=== PATIENT | female | born 1955 | race Caucasian/White ===

== ENCOUNTER 2020-08-23 04:39 | Observation (INO) | payer SELFPAY ==
[2020-08-23] VITALS (22 sets, daily range): BP systolic 110–167; BP diastolic 41–112; PULSE 97–143; RESP 14–30; TEMP 36.3–36.5; O2SAT 93–99; BMI 29.3
--- NOTE | ~2020-08-23 | CT_ITS ---
EXAMINATION: CT brain wo con INDICATION: Headache COMPARISON: None TECHNIQUE: Standard unenhanced head CT. The dose-length product (DLP) was 605.33 mGy-cm. The mA was a djusted according to patient size. Iterative reconstruction technique was employed. FINDINGS: There is no acute intraparenchymal hemorrhage. No evidence of mass lesion. No evidence of a cute infarction. Surgical changes are noted in the left occipital bone with subtle adjacent encephalo malacia in the left cerebellum. There is mild periventricular and subcortical hypodensity probably re lated to small vessel ischemic disease. There is mild prominence of the sulci and ventricles related to cerebral atrophy. Intracranial calcified cerebral atherosclerosis is noted. There are no extra-axi al collections. There is no mass effect or midline shift. The orbits and soft tissues are unremarkabl e. The visualized sinuses and mastoid air cells are well aerated. IMPRESSION: 1. No acute intracranial abnormality. 2. Age related findings. Reviewed, dictated and finalized at location A. RESSED GAS EQUIPMENT MECHANIC
--- NOTE | ~2020-08-23 | XR_ITS ---
EXAMINATION: XR barium swallow modified EXAM DATE: 08/24/2020 11:52 INDICATION: Dysphagia. TECHNIQUE: Modified barium esophagram was performed by myself to administered fluoroscopy, in conjun ction with speech pathologist who administered barium in varying consistencies as per speech patholog ist documentation. This was recorded on tape. The DAP for this procedure was 0.8 Gycm2. FINDINGS: Oral stage: Adequate function. Pharyngeal phase: Adequate function. Laryngeal penetration: None. Aspiration: None. Laryngeal sensitivity: Present. IMPRESSION: Patient tolerated oral feedings in the upright position. Please refer to speech patholo gist findings and specific feeding recommendations. Reviewed, dictated and finalized at location A. FIC LINE PAINTER IMPRESSION: Patient tolerated oral feedings in the upright position. Please r efer to speech pathologist findings and specific feeding recommendations.
--- NOTE | ~2020-08-23 | XR_ITS ---
EXAMINATION: XR chest 1V portable INDICATION: Headache TECHNIQUE: Portable AP chest at 0600 hours COMPARISON: None available FINDINGS: There are patchy opacities of the lung bases. No pleural effusion or pneumothorax is identi fied. The cardiomediastinal silhouette is normal. IMPRESSION: 1. Patchy bibasilar airspace opacities, consistent with atelectasis versus pneumonia. Reviewed, dictated and finalized at location A. DER HAND IMPRESSION: 1. Patchy bibasilar airspace opacities, consistent with atelectasis versus pneu monia.
--- NOTE | 2020-08-23 04:48 | ECG_ITS ---
Measurements Intervals [place] Rate: 134 P: 51 MT: 151 QRS: 4 QRSD: 76 T: 50 QT: 295 QTc: 442 Interpretive Statements SINUS TACHYCARDIA LEFT VENTRICULAR HYPERTROPHY AND ST-T CHANGE BORDERLINE ST ABNORMALITY- ANTEROLATERAL LEADS BASELINE ARTIFACT- II, III, AVF, V4-V6 ABNORMAL ECG Electronically Signed On 08-23-2020 9:04:48 DINKEY ENGINE FIRER/FIREMAN by Natalio Rose D.O.
--- NOTE | 2020-08-23 04:51 | ED.NEUROSD ---
HPI - Neuro Symptoms/Deficit General Chief Complaint: Suspected CVA Stated Complaint: headache Time Seen by Provider: 08/23/20 04:43 Source: EMS Mode of arrival: EMS Limitations: physical limitation History of Present Illness HPI Narrative: This patient is a 64 year old female with history of anxiety and CVA who presents via EMS for evaluation of sudden onset headache. Patient's is at bedside providing history. She states 1 month ago patient developed sudden onset headache with nausea, vomiting , and slurred speech and extremity weakness. She was admitted to [facility] for almost 2 weeks. She reported had multiple CT scan, lumbar puncture and a brain biopsy. Her states patient was discharged 08/07/20 from [place]. At the time of discharge, she still had slurred speech and bilateral extremity weakness. She reports patient has been having daily headaches since discharge. Last night she states patient started clinching both her hands and she starting having severe head pain. PAtient reports she developed worsening pain at 3 am. She takes tylenol for her headache. Related Data Home Medications Medication Instructions Recorded Confirmed hydrocodone-acetaminophen 1 tablet PO Q4H PRN 08/23/20 08/23/20 lisinopril 20 mg PO DAILY 08/23/20 08/23/20 omeprazole 40 mg PO DAILY 08/23/20 08/23/20 paroxetine HCl 40 mg PO QAM 08/23/20 08/23/20 Allergies Allergy/AdvReac Type Severity Reaction Status Date / Time No Known Allergies Allergy Verified 08/23/20 10:49 Review of Systems Review of Systems: Narrative: CONSTITUTIONAL: Denies fever, chills, or sweats. EYES: redness, or discharge.report blurred vision for weaks ENT: Denies rhinorrhea, congestion, sore throat, or otalgia. CARDIOVASCULAR: Denies chest pain, palpitations, or edema. RESPIRATORY: Denies cough or dyspnea. GASTROINTESTINAL: Denies abdominal pain or diarrhea. reports nausea and vomiting GENITOURINARY: Denies dysuria or hematuria. SKIN: Denies rash or itching. MUSCULOSKELETAL: Denies back pain, joint pain, or myalgia. PSYCHIATRIC: Denies anxiety or depression. [facility] Past Medical History Medical History (Updated 08/23/20 @ 13:59 by Leticia Kapadia PA-C) Anxiety Depression Gastroesophageal reflux disease Headache Hospitalized at [facility] for nearly 2 weeks in July 2020 with severe headache. Eventual brain biopsy demonstrated cerebellar inflammation, treated with high-dose steroids. Hyperlipidemia Hypertension Surgical History Surgical History (Updated 08/23/20 @ 13:57 by Leticia Kapadia PA-C) History of craniotomy (~07/2020) Left craniotomy with cerebellar biopsy showing inflammation, treated with high-dose steroids. History of hysterectomy Family History Family History (Updated 08/24/20 @ 00:09 by Leticia Kapadia PA-C) Other Hypertension Social History Social History (Updated 08/24/20 @ 00:09 by Leticia Kapadia PA-C) Social History: Surrogate decision maker: Sindi Cisneros, . Code status: Full code. Smoking status: Never smoker Alcohol intake: former Substance use: never Additional living arrangements comments: Lives in [place] with her . She has no children. They have 4 dogs. Additional occupation/education comments: Retired from [employer]. Gender identity (if verbalized by the patient): Female Sexual Orientation (if Verbalized by the Patient): Lesbian, Oliveira, or Homosexual Spiritual care concerns: No Exam Const: General: alert and acute distress severe (due to pain) Nutritional Appearance: well nourished Orientation/consciousness: patient oriented x3 HENMT: Head: normocephalic and atraumatic Ears: TM's normal bilaterally Face and sinus: face symmetric Mouth: Yes moist mucous membranes Eyes: Pupils: Equal, round and reactive pupils present EOM: EOMs intact bilaterally Chest: Chest palpation & inspection: normal inspection of the chest
[2020-08-23] MEDS: METOCLOPRAMIDE HCL INJ 10 MG/2 ML VIAL IV PUSH (05:05)
[2020-08-23] MEDS: diphenhydrAMINE HCl INJ 50 MG/ML VIAL 25 MG IV PUSH (05:05)
[2020-08-23] MEDS: LORazepam INJ (*CRX) 2 MG/ML VIAL 1 MG IV PUSH (05:05)
[2020-08-23 05:08] LABS: Basophils Percent Auto 0.2 % (0.2-1.2); Eosinophils Absolute Auto 0.1 K/mm3 (0-0.3); Hematocrit 37.8 % (37.0-47.0); Hemoglobin 13.2 g/dL (12.0-15.0); Immature Granulocyte Absolute 0.03 K/mm3 (0.00-0.031); Immature Granulocyte Percent A 0.2 % (0-0.5); Lymphocytes Absolute Auto 3.09 K/mm3 (0.9-3.2); Lymphocytes Percent Auto 24.9 % (18.3-44.2); Mean Corpuscular HGB Conc 34.9 g/dl (32-36); Mean Corpuscular Hemoglobin 31.1 pg (26-34); Mean Corpuscular Volume 89.2 fl (80-100); Mean Platelet Volume 10.4 fl (7.4-10.4); Monocytes Absolute Auto 0.7 K/mm3 (0.1-0.6); Monocytes Percent Auto 5.6 % (2.6-8.5); Neutrophils Absolute Auto 8.4 K/mm3 (1.3-6.7); Neutrophils Percent Auto 68.1 % (45.5-73.1); Platelet Count Result 363 k/mm3 (150-375); Red Blood Count 4.24 M/mm3 (4.2-5.4); Red Cell Distribution Width 13.6 % (11.5-14.5); White Blood Count 12.4 K/mm3 (4.5-10.0)
[2020-08-23] MEDS: LACTATED RINGERS 1,000 ML 999 ML IV CONT (05:09)
[2020-08-23 05:19] LABS: Prothrombin Time 13.7 Seconds (11.1-14.7)
[2020-08-23 05:20] LABS: Partial Thromboplastin Time 24.2 SECONDS (22.3-36.8)
[2020-08-23 05:51] LABS: Alanine Aminotransferase 36 U/L (4-35); Albumin Level 4.6 g/dL (3.5-5.1); Alkaline Phosphatase 58 U/L (38-126); Anion Gap 22 mmol/L (8-16); Aspartate Amino Transferase 36 U/L (14-36); Bilirubin,Total 1.2 mg/dL (0.2-1.3); Blood Urea Nitrogen 11 mg/dL (7-17); Calcium 7.2 mg/dL (8.4-10.2); Carbon Dioxide 20 mmol/L (22-30); Chloride 102 mmol/L (98-107); Estimated CRCL calculation 63 ml/min; Estimated Glomerular Filt Rate > 60; Glucose 200 mg/dL (65-105); Potassium 2.5 mmol/L (3.4-5.0); Sodium 144 mmol/L (137-145)
[2020-08-23 07:00] LABS: Alveolar/Arterial O2 Gradient 45.6 mmHg; Base Excess ABG 1.5 mEq/l (+/-2.0); Carboxyhemoglobin 0.7 % THb (0-2.0); Fractional Inspired Oxygen 21 %; HCO3 ABG 24.5 mEq/l (22.0-26.0); Methemoglobin ABG 0.3 %THb (0-1.5); Oxygen Content ABG 17.1 %vol (16.0-22.0); Oxyhemoglobin 91.2 % THb (90.0-100.0); PCO2 ABG 33.5 mmHg (35.0-45.0); PO2 FiO2 Ratio Arterial Blood 3.05 %; Reduced Hemoglobin 7.8 %THb (0-5.0); Total Hemoglobin 13.3 g/dL (12.0-18.0); pH ABG 7.482 (7.350-7.450)
[2020-08-23 07:01] LABS: Device ROOM AIR; Modified Allen's Test Pass; Site Drawn RIGHT RADIAL
[2020-08-23 07:23] LABS: Magnesium 0.3 mg/dL (1.6-2.3)
[2020-08-23] MEDS: ONDANSETRON INJ 4 MG/2 ML VIAL IV PUSH (08:07)
[2020-08-23] MEDS: MAGNESIUM SULFATE 3GM/D5W100ML 3 GM/100 ML BAG IVPB (08:07)
[2020-08-23] MEDS: SODIUM CHLORIDE 0.9% IV 1,000 ML 999 ML IV CONT (08:07)
[2020-08-23 08:57] LABS: Ethanol < 10 mg/dL (<10)
[2020-08-23 09:01] LABS: Add Urine Microscopic? YES; Appearance Urine Clear (Clear); Bilirubin Urine Negative (Negative); Blood Urine Negative (Negative); Color Urine Yellow (Yellow); Glucose Urine UA Negative (Negative); Ketones Urine 1+ mg/dL (Negative); Leukocyte Esterase Ur Negative LEU/UL (Negative); Mucus Urine Rare /lpf; Nitrate Urine Negative (Negative); Protein Urine 2+ mg/dL (Negative); RBC Urine 0-2 /hpf (0-2); Specific Grav Ur 1.027 (1.001-1.035); Squamous Epithelial Cell Urine Rare /hpf (Few); Urobilinogen Urine Negative mg/dL (<2.0); WBC Urine 0-3 /hpf
[2020-08-23 09:03] LABS: Amphetamine Screen Urine Negative (Negative); Barbiturate Screen Urine Negative (Negative); Benzodiazepines Screen Urine Negative (Negative); Cannabinoid Screen Urine Negative (Negative); Cocaine Screen Urine Negative (Negative); Methadone Screen Urine Negative (Negative); Opiate Screen Urine Positive (Negative); Phencyclidine Screen Urine Negative (Negative)
[2020-08-23] MEDS: Please add drug allergy info to patient profile. 1 EACH XX (09:22)
[2020-08-23] MEDS: LACTATED RINGERS 1,000 ML 50 ML IV CONT (10:15)
--- NOTE | 2020-08-23 10:15 | PC.NURSE ---
report obtained from Sara HONG, reviewed plan of care and condition
--- NOTE | 2020-08-23 10:16 | ADMGEN ---
This patient, Geno De Jesus, was admitted to Medical Room 344-01. Patient/family oriented to hospital policies and general routines including ID bracelet, bed and alarms, visiting hours, pain management, procedures, bathroom and other care routines, personal items, smoking policy, room service/diet, and visiting hours. Placed on telemetry per MD orders, reviewed plan of care with pt Information on how to activate the Rapid Response Team has been discussed. Patient/Family are encouraged to report perceived risks to care and to ask questions if they do not understand what they are told or what they should do.
--- NOTE | 2020-08-23 10:17 | PCDIET ---
IVFs slowed due to potassium infusion
--- NOTE | 2020-08-23 10:59 | WPDNEURCNPN ---
Assessment and Plan Assessment and plan (1) Acute headache: Code(s): R51.9 - Headache, unspecified Status: Acute (2) Acute hypokalemia: Code(s): E87.6 - Hypokalemia Status: Acute (3) Hypomagnesemia: Code(s): E83.42 - Hypomagnesemia Status: Acute Additional Plan severe subacute headaches with the history of the cerebellar biopsy and treatment with steroids I will discuss with her obtain the EEG and we might give her the short course of steroids if she remains afebrile and we feel no need for the spinal tap Consult date: 08/23/20 Time Seen: 10:59 HPI: Geno De Jesus is a 64 year old female admitted to the hospital for the complaints of sudden onset of headache and as for the information available from the patient had developed sudden headache about a month ago with nausea vomiting and slurred speech and generalized weakness she was admitted to [facility] for [address] scans lumbar puncture brain biopsy was done and she was discharged on August 07, 2020 with slurred speech bilateral lower extremity weakness but she has been complaining of severe headache since the last night. As per the information available from the [place] neuro she had undergone extensive evaluation for the complaints of the headache to the point that she had a brain biopsy of the cerebellum and she was discharged on high dosage of steroids. her electrolytes are abnormal with potassium 2.5 blood sugar of 200 and WBCs 12.4 with hemoglobin 13.2 and platelets [address] of the head done here revealed no mass effect or midline shift postsurgical changes at the left skull base and hypodensity in the left cerebellum with the biopsy must have been taken. at present patient is not receiving steroids Review of Systems Review of Systems: All systems reviewed & are unremarkable except as noted in HPI and below PMFSH Social History Social History Smoking status: Never smoker Alcohol intake: former Substance use: never Gender identity (if verbalized by the patient): Female Sexual Orientation (if Verbalized by the Patient): Lesbian, Oliveira, or Homosexual Spiritual care concerns: No Meds Home Medications and Allergies Home Medications Medication Instructions Recorded Confirmed Type hydrocodone-acetaminophen 1 tablet PO Q4H PRN 08/23/20 08/23/20 History lisinopril 20 mg PO DAILY 08/23/20 08/23/20 History omeprazole 40 mg PO DAILY 08/23/20 08/23/20 History paroxetine HCl 40 mg PO QAM 08/23/20 08/23/20 History Allergies Allergy/AdvReac Type Severity Reaction Status Date / Time No Known Allergies Allergy Verified 08/23/20 10:49 Vital Signs Vital Signs - 24 hr 08/23/20 04:41 08/23/20 04:54 08/23/20 05:24 Temperature 36.3 C L Pulse Rate 143 H 137 H 127 H Respiratory Rate 26 H 16 26 H Blood Pressure 167/112 H Pulse Oximetry 96 97 94 08/23/20 05:25 08/23/20 05:37 08/23/20 05:45 Temperature Pulse Rate 129 H 123 H 115 H Respiratory Rate 26 H 20 20 Blood Pressure 142/87 H Pulse Oximetry 94 96 96 08/23/20 05:46 08/23/20 06:57 08/23/20 07:00 Temperature Pulse Rate 117 H 123 H 113 H Respiratory Rate 20 29 H 27 H Blood Pressure 133/71 Pulse Oximetry 96 93 96 08/23/20 07:01 08/23/20 07:15 08/23/20 07:16 Temperature Pulse Rate 114 H 97 100 Respiratory Rate 25 H 27 H 30 H Blood Pressure 134/68 128/69 Pulse Oximetry 95 08/23/20 08:08 08/23/20 09:21 08/23/20 09:44 Temperature Pulse Rate 107 H 101 H 105 H Respiratory Rate 15 22 H 20 Blood Pressure 148/67 H 110/41 L 123/65 Pulse Oximetry 98 93 99 08/23/20 10:16 Temperature 36.4 C Pulse Rate 106 H Respiratory Rate 14 Blood Pressure 134/59 L Pulse Oximetry 95 Exam Narrative: Exam Narrative: on examination she is awake alert in distress head normocephalic no bruit ear nose throat examination normal neck is supple no restriction of the range
--- NOTE | 2020-08-23 14:30 | PM.IMHP ---
H&P: HPI History of Present Illness Date/Time: 08/23/20 14:00 Chief complaint: acute headache/hypokalemia/hypomagnesemia Narrative: Geno De Jesus is a a 64-year-old female with hypertension and hyperlipidemia presented to the emergency department earlier today via EMS from home for evaluation of a severe, sudden onset headache. Approximately 1 month ago she had a similar headache, sudden onset, accompanied with nausea, vomiting, slurred speech, and weakness. She was admitted to [facility] for nearly 2 weeks and had an extensive evaluation including multiple CT scans, lumbar puncture, and ultimately a brain biopsy which demonstrated cerebellar inflammation. She was treated with high-dose steroids and was discharged on 08/07/2020 with a prescription for steroids however she told me that she was given a bottle of prednisone, total of 25 pills, ?that I was told to take all at once.? She thought this was too much, so she took 4 and did not finish the rest of the bottle. In any regard, she still had symptoms to include tremors, slurred speech, difficulties focusing with her vision weakness, headaches, and ataxia on discharge. All symptoms have have continued and she does not see any real improvement. She also continues to get headaches, but was wakened from sleep this morning with a significantly worse headache at approximately 03:00. The headache is diffuse and ?feels like my head is going to explode.? She has been taking Tylenol for that at home with some benefit. She has no other complaints aside from voicing frustration as to why this is happening and her symptoms do not seem to be improved. She denies fever, chills, sweats, sinus congestion, rhinorrhea, otalgia, odynophagia, chest pain, palpitations, shortness breath, vomiting, diarrhea, or dysuria. No focal weakness or paresthesias. She has not had any recent illnesses, travel, sick contacts, or recent mosquito or tick bites. Review of Systems Review of Systems: Narrative: Twelve systems were pertinent positives and negatives as per HPI. Except as documented, all other systems were reviewed and are negative. [facility] Past Medical History Medical History (Updated 08/23/20 @ 13:59 by Leticia Kapadia PA-C) Anxiety Depression Gastroesophageal reflux disease Headache Hospitalized at [facility] for nearly 2 weeks in July 2020 with severe headache. Eventual brain biopsy demonstrated cerebellar inflammation, treated with high-dose steroids. Hyperlipidemia Hypertension Surgical History Surgical History (Updated 08/23/20 @ 13:57 by Leticia Kapadia PA-C) History of craniotomy (~07/2020) Left craniotomy with cerebellar biopsy showing inflammation, treated with high-dose steroids. History of hysterectomy Family History Family History (Updated 08/24/20 @ 00:09 by Leticia Kapadia PA-C) Other Hypertension Social History Social History (Updated 08/24/20 @ 00:09 by Leticia Kapadia PA-C) Social History: Surrogate decision maker: Sindi Cisneros, . Code status: Full code. Smoking status: Never smoker Alcohol intake: former Substance use: never Additional living arrangements comments: Lives in [place] with her . She has no children. They have 4 dogs. Additional occupation/education comments: Retired from [employer]. Gender identity (if verbalized by the patient): Female Sexual Orientation (if Verbalized by the Patient): Lesbian, Oliveira, or Homosexual Spiritual care concerns: No Meds Home Medications and Allergies Home Medications Medication Instructions Recorded Confirmed Type hydrocodone-acetaminophen 1 tablet PO Q4H PRN 08/23/20 08/23/20 History lisinopril 20 mg PO DAILY 08/23/20 08/23/20 History omeprazole 40 mg PO DAILY 08/23/20 08/23/20 History paroxetine HCl 40 mg PO QAM 08/23/20 08/23/20 History Allergies Allergy/AdvReac Type Severity Reaction Status Date / Time No Known Allergies Al
[2020-08-23 14:39] LABS: Lactic Acid Reflex 2.4 mmol/L (0.7-2.1); Phosphorus 3.6 mg/dL (2.5-4.5)
[2020-08-23 14:41] LABS: Anion Gap 9 mmol/L (8-16); Blood Urea Nitrogen 11 mg/dL (7-17); CRP 0.6 mg/dL (<1.0); Calcium 7.2 mg/dL (8.4-10.2); Carbon Dioxide 35 mmol/L (22-30); Chloride 99 mmol/L (98-107); Estimated CRCL calculation 69 ml/min; Estimated Glomerular Filt Rate > 60; Glucose 162 mg/dL (65-105); Magnesium 1.3 mg/dL (1.6-2.3); Potassium 2.9 mmol/L (3.4-5.0); Sodium 143 mmol/L (137-145)
[2020-08-23] MEDS: PARoxetine 20 MG TABLET 40 MG PO (17:03)
[2020-08-23] MEDS: PANTOPRAZOLE 40 MG TABLET PO (17:03)
[2020-08-23] MEDS: lisinopriL 20 MG TABLET PO (17:04)
[2020-08-23 17:24] LABS: Reflex Lactic Acid Yes or No Add Lactic
[2020-08-23 17:42] LABS: Glucose Point of Care 135 (65-105)
[2020-08-23 17:52] LABS: Lactic Acid 1.4 mmol/L (0.7-2.1)
--- NOTE | 2020-08-23 19:29 | PC.NURSE ---
IVFs placed at 125ml/hr following completion of K-rider
[2020-08-23] MEDS: HYDROcodone/acetaminophen (*CRX) 5-325 MG TABLET 1 TAB PO (22:11)
[2020-08-23 22:26] LABS: Glucose Point of Care 106 (65-105)
[2020-08-24] VITALS (10 sets, daily range): BP systolic 129–145; BP diastolic 60–88; PULSE 88–105; RESP 16; TEMP 36.1–36.2; O2SAT 94–97
[2020-08-24] MEDS: MAGNESIUM SULF 1 GM/D5W 100 ML 1 GM/100 ML BAG IVPB (00:48)
[2020-08-24 06:31] LABS: Basophils Percent Auto 0.2 % (0.2-1.2); Eosinophils Absolute Auto 0.1 K/mm3 (0-0.3); Eosinophils Percent Auto 0.8 % (0-4.4); Hematocrit 32.6 % (37.0-47.0); Hemoglobin 11.1 g/dL (12.0-15.0); Immature Granulocyte Absolute 0.02 K/mm3 (0.00-0.031); Immature Granulocyte Percent A 0.2 % (0-0.5); Lymphocytes Absolute Auto 2.28 K/mm3 (0.9-3.2); Lymphocytes Percent Auto 27.1 % (18.3-44.2); Mean Corpuscular Volume 91.1 fl (80-100); Mean Platelet Volume 10.5 fl (7.4-10.4); Monocytes Absolute Auto 0.6 K/mm3 (0.1-0.6); Monocytes Percent Auto 6.5 % (2.6-8.5); Neutrophils Absolute Auto 5.5 K/mm3 (1.3-6.7); Neutrophils Percent Auto 65.2 % (45.5-73.1); Platelet Count Result 239 k/mm3 (150-375); Red Blood Count 3.58 M/mm3 (4.2-5.4); White Blood Count 8.4 K/mm3 (4.5-10.0)
[2020-08-24 06:51] LABS: Alanine Aminotransferase 26 U/L (4-35); Albumin Level 3.7 g/dL (3.5-5.1); Alkaline Phosphatase 55 U/L (38-126); Anion Gap 6 mmol/L (8-16); Aspartate Amino Transferase 30 U/L (14-36); Blood Urea Nitrogen 4 mg/dL (7-17); Calcium 7.3 mg/dL (8.4-10.2); Carbon Dioxide 34 mmol/L (22-30); Chloride 103 mmol/L (98-107); Estimated CRCL calculation 69 ml/min; Estimated Glomerular Filt Rate > 60; Glucose 110 mg/dL (65-105); Magnesium 1.5 mg/dL (1.6-2.3); Phosphorus 2.7 mg/dL (2.5-4.5); Potassium 3.3 mmol/L (3.4-5.0); Sodium 143 mmol/L (137-145)
[2020-08-24 07:55] LABS: Glucose Point of Care 109 (65-105)
[2020-08-24] MEDS: PANTOPRAZOLE 40 MG TABLET PO ×2 (08:12→21:41)
[2020-08-24] MEDS: lisinopriL 20 MG TABLET PO (08:12)
[2020-08-24] MEDS: PARoxetine 20 MG TABLET 40 MG PO (08:13)
[2020-08-24] MEDS: LACTATED RINGERS 1,000 ML 125 ML IV CONT (08:14)
--- NOTE | 2020-08-24 11:14 | PM.IMPN ---
Progress Note: A&P Assessment and Plan (1) Acute headache: Code(s): R51.9 - Headache, unspecified Status: Acute Assessment and Plan: Resolved at this time no vision changes or weakness noted at this time treated overnight with Tylenol The patient has been admitted with a severe headache. The ED physician spoke with Dr. Castro (neurologist at [facility]) who reviewed her chart from recent stay in July 2020. At that time she had an extensive evaluation for an ongoing, severe headache. Essentially she had a brain biopsy showing cerebellar inflammation for which she was discharged home on high-dose steroids. Dr. Castro does not think that she needs to be transferred back to [facility] and feels comfortable with her being admitted here at [facility] with Neurology consulting. She did not complete the entire course of prednisone that she was given on discharge. I will defer the decision to resume steroids to Dr. solis, and his input is greatly appreciated. appreciate Neurologist's recommendations - EEG and further studies requested [facility] medical records, Neurology notes and tests (2) Hypokalemia: Code(s): E87.6 - Hypokalemia Status: Acute Assessment and Plan: K 3.3 replenishing with IV patient states that she is depleted from multiple prior weeks of diarrhea will repeat labs in the morning need to maintain K level with oral supplements and not need IV for 24 hours prior to discharge repeating labs this afternoon and morning. no diarrhea or vomitting reported today per patient and staff, ate all of her breakfast with no N/V (3) Hypomagnesemia: Code(s): E83.42 - Hypomagnesemia Status: Acute Assessment and Plan: Mag 1.5 replenishing with 4 gm Mag IV patient states that she is depleted from multiple prior weeks of diarrhea will repeat labs in the morning need to maintain Mag level with oral supplements and not need IV for 24 hours prior to discharge repeating labs this afternoon and morning. no diarrhea or vomitting reported today per patient and staff, ate all of her breakfast with no N/V (4) Hyperglycemia: Code(s): R73.9 - Hyperglycemia, unspecified Status: Acute Assessment and Plan: Glucose 110 and 109 stable no concerns at this time ACHS glucose checks eating well at this time, No N/V/D noted today (5) Hypertension: Code(s): I10 - Essential (primary) hypertension Status: Acute Assessment and Plan: improved takes lisinopril at home BPs noted 129/88 and 138/59 HR 70s denies chest pain or SOB, no BLE edema, no pulmonary congestion , no wheezing. (6) Hyperlipidemia: Code(s): E78.5 - Hyperlipidemia, unspecified Status: Acute Assessment and Plan: F/U with her PCP after discharge (7) Depression: Code(s): F32.9 - Major depressive disorder, single episode, unspecified Status: Acute Assessment and Plan: takes Paroxetine HCL at home F/U with her PCP after discharge (8) Anxiety: Code(s): F41.9 - Anxiety disorder, unspecified Status: Acute Assessment and Plan: takes Paroxetine HCL at home F/U with her PCP after discharge (9) Gastroesophageal reflux disease: Code(s): K21.9 - Gastro-esophageal reflux disease without esophagitis Status: Acute Assessment and Plan: takes Omeprazole at home F/U with her PCP after discharge Subjective Date/time seen: 08/24/20 11:14 Patient was very talkative when I went in to see her. She was asking if this headache and neurological symptoms were from mosquitoes. I asked if she had been following up with her Neurologist from [facility], she stated that she did not have one. Her headache from 3am resolved with tylenol and has not returned. We are replenishing her Mag and K today with IV, rechecking levels this afternoon. Requesting [facility] neurologist notes and testing. She has a good appetite and will have her Swallow Evaluation completed later anali kirk
--- NOTE | 2020-08-24 12:17 | PCSTNOTE ---
Please refer to the Modified Barium Swallow Evaluation in the EMR.
[2020-08-24] MEDS: MAGNESIUM SULF 4 GM/WATER100ML 4 GM/100 ML BAG IVPB (13:37)
[2020-08-24 15:56] LABS: Anion Gap 7 mmol/L (8-16); Blood Urea Nitrogen 4 mg/dL (7-17); Calcium 7.2 mg/dL (8.4-10.2); Carbon Dioxide 32 mmol/L (22-30); Chloride 102 mmol/L (98-107); Estimated CRCL calculation 69 ml/min; Estimated Glomerular Filt Rate > 60; Glucose 111 mg/dL (65-105); Magnesium 3.8 mg/dL (1.6-2.3); Potassium 2.8 mmol/L (3.4-5.0); Sodium 141 mmol/L (137-145)
[2020-08-24] MEDS: THERAPEUTIC MULTIVITAMINS/MINERALS TAB (*BKC) 1 TABLET PO (16:36)
[2020-08-24] MEDS: POTASSIUM CHLORIDE 20 MEQ PACKET (FOR LIQUID) 40 MEQ PO (17:37)
[2020-08-24] MEDS: HYDROcodone/acetaminophen (*CRX) 5-325 MG TABLET 1 TAB PO (21:41)
[2020-08-25 05:28] VITALS: BP 120/82; PULSE 87; RESP 17; TEMP 36.5; O2SAT 98
[2020-08-25 05:43] LABS: Hematocrit 32.7 % (37.0-47.0); Hemoglobin 10.7 g/dL (12.0-15.0); Mean Corpuscular HGB Conc 32.7 g/dl (32-36); Mean Corpuscular Hemoglobin 30.8 pg (26-34); Mean Corpuscular Volume 94.2 fl (80-100); Mean Platelet Volume 10.5 fl (7.4-10.4); Platelet Count Result 228 k/mm3 (150-375); Red Blood Count 3.47 M/mm3 (4.2-5.4); Red Cell Distribution Width 14.2 % (11.5-14.5); White Blood Count 7.7 K/mm3 (4.5-10.0)
[2020-08-25 05:58] LABS: Alanine Aminotransferase 22 U/L (4-35); Albumin Level 3.3 g/dL (3.5-5.1); Alkaline Phosphatase 55 U/L (38-126); Anion Gap 6 mmol/L (8-16); Aspartate Amino Transferase 27 U/L (14-36); Bilirubin,Total 0.7 mg/dL (0.2-1.3); Blood Urea Nitrogen 3 mg/dL (7-17); Calcium 7.3 mg/dL (8.4-10.2); Carbon Dioxide 28 mmol/L (22-30); Chloride 109 mmol/L (98-107); Estimated CRCL calculation 82 ml/min; Estimated Glomerular Filt Rate > 60; Glucose 90 mg/dL (65-105); Magnesium 2.2 mg/dL (1.6-2.3); Potassium 4.1 mmol/L (3.4-5.0); Sodium 143 mmol/L (137-145)
[2020-08-25] MEDS: PARoxetine 20 MG TABLET 40 MG PO (08:54)
[2020-08-25] MEDS: ATORVASTATIN 20 MG TABLET PO (08:55)
[2020-08-25] MEDS: CALCIUM/VITAMIN D 250 MG TABLET 1 TABLET PO (08:55)
[2020-08-25] MEDS: MULTIVIT/MIN/PREN/FOL AC/IRON TABLET 1 TAB PO (08:55)
[2020-08-25] MEDS: THERAPEUTIC MULTIVITAMINS/MINERALS TAB (*BKC) 1 TABLET PO (08:55)
[2020-08-25] MEDS: PANTOPRAZOLE 40 MG TABLET PO (08:55)
[2020-08-25] MEDS: lisinopriL 20 MG TABLET PO (08:55)
--- NOTE | 2020-08-25 10:37 | P.DS_ITS ---
DS: Admitting Diagnosis Admitting Diagnosis Admitting Diagnosis: acute headache/hypokalemia/hypomagnesemia DS: Discharge Diagnosis Discharge Diagnosis (1) Acute headache: Code(s): R51.9 - Headache, unspecified Status: Acute Assessment and Plan: Resolved at this time. no vision changes or weakness noted at this time. Patient wishing to be discharged. Okay for discharge from Neuro standpoint, but will need to follow up with [facility] Neurologist after discharge. Patient agreeable to this. Patient had extensive evaluation/work up at [facility] and discharge on High dose steroids which patient states was way too much and did not take the entire prescripition. * F/u with established Neurologist. * F/u with PCP * Tylenol as needed for headaches. * D/c home today. (2) Hypokalemia: Code(s): E87.6 - Hypokalemia Status: Acute Assessment and Plan: K 4.1 today. Replenished during stay. * Will do BMP on 08/27 * F/u with PCP (3) Hypomagnesemia: Code(s): E83.42 - Hypomagnesemia Status: Acute Assessment and Plan: Mag 2.2. Replaced during stay. Possibly due to diarrhea? * Mag level on 08/27 * F/u with PCP (4) Hyperglycemia: Code(s): R73.9 - Hyperglycemia, unspecified Status: Acute Assessment and Plan: BGL stable; 90 today. no concerns at this time * Accuchecks ACHS, hypoglycemia protocol, correctional insulin, diabetic diet (5) Hypertension: Code(s): I10 - Essential (primary) hypertension Status: Acute Assessment and Plan: Last BP 120/82; improved * Continue home antihypertensive at discharge (6) Hyperlipidemia: Code(s): E78.5 - Hyperlipidemia, unspecified Status: Acute Assessment and Plan: * F/U with her PCP after discharge (7) Depression: Code(s): F32.9 - Major depressive disorder, single episode, unspecified Status: Acute Assessment and Plan: * Continue home Paroxetine HCL * F/U with her PCP after discharge (8) Anxiety: Code(s): F41.9 - Anxiety disorder, unspecified Status: Acute Assessment and Plan: * Continue home Paroxetine HCL * F/U with her PCP after discharge (9) Gastroesophageal reflux disease: Code(s): K21.9 - Gastro-esophageal reflux disease without esophagitis Status: Acute Assessment and Plan: * Continue home PPI * F/U with her PCP after discharge DS: Summary Hospital Course Reason for hospitalization: Severe intractable headache, hypokalemia, h ypomagnesemia Hospital Course: Patient is a 64-year-old female with hypertension and hyperlipidemia presented to the emergency department on 08/23 via EMS from home for evaluation of a severe, sudden onset headache. The ED spoke to Dr. Castro (neurologist at [facility]) who reviewed her chart and had extensive evaluation for these ongoing headaches; she had a brain biopsy and showed cerebellar inflammation at that time and was discharge on high dose steroids which the patient did not take the full prescription. While in the ED she was found to have low potassium and magnesium per her labs; her headache was intractable to pain medications. Patient admitted under this setting. Please see H&P for further deta
--- NOTE | 2020-08-25 10:37 | PM.DS ---
DS: Admitting Diagnosis Admitting Diagnosis Admitting Diagnosis: acute headache/hypokalemia/hypomagnesemia DS: Discharge Diagnosis Discharge Diagnosis (1) Acute headache: Code(s): R51.9 - Headache, unspecified Status: Acute Assessment and Plan: Resolved at this time. no vision changes or weakness noted at this time. Patient wishing to be discharged. Okay for discharge from Neuro standpoint, but will need to follow up with [facility] Neurologist after discharge. Patient agreeable to this. Patient had extensive evaluation/work up at [facility] and discharge on High dose steroids which patient states was way too much and did not take the entire prescripition. F/u with established Neurologist. F/u with PCP Tylenol as needed for headaches. D/c home today. (2) Hypokalemia: Code(s): E87.6 - Hypokalemia Status: Acute Assessment and Plan: K 4.1 today. Replenished during stay. Will do BMP on 08/27 F/u with PCP (3) Hypomagnesemia: Code(s): E83.42 - Hypomagnesemia Status: Acute Assessment and Plan: Mag 2.2. Replaced during stay. Possibly due to diarrhea? Mag level on 08/27 F/u with PCP (4) Hyperglycemia: Code(s): R73.9 - Hyperglycemia, unspecified Status: Acute Assessment and Plan: BGL stable; 90 today. no concerns at this time Accuchecks ACHS, hypoglycemia protocol, correctional insulin, diabetic diet (5) Hypertension: Code(s): I10 - Essential (primary) hypertension Status: Acute Assessment and Plan: Last BP 120/82; improved Continue home antihypertensive at discharge (6) Hyperlipidemia: Code(s): E78.5 - Hyperlipidemia, unspecified Status: Acute Assessment and Plan: F/U with her PCP after discharge (7) Depression: Code(s): F32.9 - Major depressive disorder, single episode, unspecified Status: Acute Assessment and Plan: Continue home Paroxetine HCL F/U with her PCP after discharge (8) Anxiety: Code(s): F41.9 - Anxiety disorder, unspecified Status: Acute Assessment and Plan: Continue home Paroxetine HCL F/U with her PCP after discharge (9) Gastroesophageal reflux disease: Code(s): K21.9 - Gastro-esophageal reflux disease without esophagitis Status: Acute Assessment and Plan: Continue home PPI F/U with her PCP after discharge DS: Summary Hospital Course Reason for hospitalization: Severe intractable headache, hypokalemia, hypomagnesemia Hospital Course: Patient is a 64-year-old female with hypertension and hyperlipidemia presented to the emergency department on 08/23 via EMS from home for evaluation of a severe, sudden onset headache. The ED spoke to Dr. Castro (neurologist at [facility]) who reviewed her chart and had extensive evaluation for these ongoing headaches; she had a brain biopsy and showed cerebellar inflammation at that time and was discharge on high dose steroids which the patient did not take the full prescription. While in the ED she was found to have low potassium and magnesium per her labs; her headache was intractable to pain medications. Patient admitted under this setting. Please see H&P for further details. Patient was admitted to the hospitalist service for further evaluation. Magnesium and potassium were replaced and acceptable levels upon discharge. Her headaches improved significantly by day of discharge. Dr. Narayan evaluated the patient and deferred further steroid treatment to her established Neurologist. Plan was for her to obtain BMP and mag on 08/27 to further monitor her electrolytes. She was to
== END 2020-08-25 11:47 | disposition home or self-care (01) ==
LOC: ANHED 05:28 → ANH3MED 09:06
PROVIDERS: Nurse Practitioner; Physician Assistant; Admitting Provider Family Medicine; Emergency Provider General Practice; PCP Internal Medicine; Visit Provider Family Medicine
DX: R51.9 Headache, unspecified (principal); E87.6 Hypokalemia; E83.42 Hypomagnesemia; R73.9 Hyperglycemia, unspecified; F41.8 Other specified anxiety disorders; I10 Essential (primary) hypertension; E78.5 Hyperlipidemia, unspecified; K21.9 Gastro-esophageal reflux disease without esophagitis; Z79.899 Other long term (current) drug therapy
CPT/HCPCS: 36415; 36600; 70450; 71045; 80048; 80053; 80307; 81001; 82375; 82805; 83036; 83050; 83605; 83735; 84100; 85025; 85027; 85610; 85730; 86140; 92526; 92611; 93005; 96361; 96365; 96366; 96367; 96375; 97110; 97116; 97161; 97165; 99285; A9270; G0378; G0379; J0131; J1200; J2060; J2405; J2765; J3475; J3480; J7030; J7120

== ENCOUNTER 2020-10-11 03:57 | Inpatient (IN) | payer MEDICARE, MEDICAID, SELFPAY ==
[2020-10-11] VITALS (30 sets, daily range): BP systolic 119–164; BP diastolic 63–105; PULSE 122–152; RESP 18–26; TEMP 36–36.7; O2SAT 90–100; BMI 29.0
--- NOTE | ~2020-10-11 | XR_ITS ---
EXAMINATION: XR chest 1V portable DATE: 10/11/2020 05:01 INDICATION: Cough TECHNIQUE: frontal view of the chest was obtained. COMPARISON: Chest radiograph dated 08/23/2020 FINDINGS: The lungs are now clear with no focal airspace opacities, pulmonary edema, pleural effusion or pneumo thorax. The cardiomediastinal silhouette is normal. Visualized bones and soft tissues are unremarkabl e. IMPRESSION: 1. No acute cardiopulmonary disease. Indiscernible mild emphysema which can be seen on subsequent CT of the abdomen and pelvis. Reviewed, dictated and finalized at location A. OO ARTIST
--- NOTE | ~2020-10-11 | CT_ITS ---
EXAMINATION: CT brain wo con INDICATION: Confusion and slurred speech COMPARISON: 08/23/2020 TECHNIQUE: Standard unenhanced head CT. The dose-length product (DLP) was 605.33 mGy-cm. The mA was a djusted according to patient size. Iterative reconstruction technique was employed. FINDINGS: There is no acute intraparenchymal hemorrhage. No evidence of mass lesion. No evidence of a cute infarction. Again noted are surgical changes in the left occipital bone with adjacent encephalom alacia of the left cerebellum. There is mild periventricular and subcortical hypodensity probably rel ated to small vessel ischemic disease. There is mild prominence of the sulci and ventricles related t o cerebral atrophy. Intracranial calcified cerebral atherosclerosis is noted. There are no extra-axia l collections. There is no mass effect or midline shift. The orbits and soft tissues are unremarkable . The visualized sinuses and mastoid air cells are well aerated. IMPRESSION: 1. No acute intracranial abnormality. 2. Age related findings. 3. Surgical changes in the left occipital bone with adjacent encephalomalacia of the left cerebellum. Reviewed, dictated and finalized at location A. GEMENT LIAISON IMPRESSION: 1. No acute intracranial abnormality. 2. Age related findings. 3. Surgical changes in the left occipital bone with adjacent encephalomalacia o f the left cerebellum.
--- NOTE | ~2020-10-11 | XR_ITS ---
EXAMINATION: XR chest 1V portable INDICATION: Transient alteration of awareness TECHNIQUE: Portable AP chest at 1913 hours COMPARISON: 0459 hours FINDINGS: The lungs are free of acute opacities. There is no pleural effusion or pneumothorax. The ca rdiomediastinal silhouette is normal. There is moderate cervical and thoracic spondylosis. IMPRESSION: 1. No acute cardiopulmonary abnormality. Reviewed, dictated and finalized at location A. LE ERP ARCHITECT
--- NOTE | ~2020-10-11 | CT_ITS ---
EXAMINATION: CT abdomen pelvis w con INDICATION: Abdominal pain TECHNIQUE: Computed tomographic images of the abdomen and pelvis were obtained after the administrati on of 100 cc of Omnipaque 350 intravenous contrast. The dose-length product (DLP) was 440.20 mGy-cm. Automated exposure control and iterative reconstruction technique were employed. COMPARISON: None available FINDINGS: Minimal dependent atelectasis is present in the lung bases. The heart size is normal. The l iver is diffusely low in attenuation when compared with the spleen, consistent with hepatic steatosis . The spleen, pancreas, and adrenal glands are normal. The kidneys are unremarkable. No pathologicall y enlarged abdominal or pelvic lymph nodes are identified. There is no free intraperitoneal gas or ev idence of bowel obstruction. Apparent mild colonic wall thickening of the ascending and distal transv erse colon could be due to incomplete distention or possibly mild colitis. There is severe lumbar spo ndylosis at L5-S1. There is mild distention of the stomach. IMPRESSION: 1. Mild apparent wall thickening of the ascending and distal transverse colon which could be due to i ncomplete distention or possibly mild colitis. 2. Gastric distention, correlate for gastritis. Reviewed, dictated and finalized at location A. TECH IMPRESSION: 1. Mild apparent wall thickening of the ascending and distal transverse colon w hich could be due to incomplete distention or possibly mild colitis. 2. Gastric distention, correlate for gastritis.
--- NOTE | 2020-10-11 04:16 | ECG_ITS ---
Measurements Intervals [place] Rate: 156 P: 69 AL: 117 QRS: 31 QRSD: 78 T: 93 QT: 235 QTc: 379 Interpretive Statements SINUS TACHYCARDIA WITH SHORT AL INTERVAL, POSSIBLE ATRIAL FLUTTER LEFT VENTRICULAR HYPERTROPHY WITH ST-T CHANGE ST-T WAVE ABNORMALITY IN ANTEROLAT/INF LEADS- CONSIDER ISCHEMIA BASELINE ARTIFACT- I, III, AVL ABNORMAL ECG Electronically Signed On 10-11-2020 8:05:03 CREDIT NEGOTIATOR by Natalio Rose D.O.
[2020-10-11] MEDS: ONDANSETRON INJ 4 MG/2 ML VIAL IV PUSH ×3 (04:24→20:30)
[2020-10-11] MEDS: SODIUM CHLORIDE 0.9% IV 1,000 ML 999 ML IV CONT ×3 (04:24→06:40)
[2020-10-11] MEDS: MORPHINE SULFATE (*CRX) 4 MG/ML INJ IV PUSH (04:24)
[2020-10-11 04:56] LABS: Basophils Percent Auto 0.2 % (0.2-1.2); Hematocrit 42.6 % (37.0-47.0); Hemoglobin 14.7 g/dL (12.0-15.0); Immature Granulocyte Absolute 0.08 K/mm3 (0.00-0.031); Immature Granulocyte Percent A 0.5 % (0-0.5); Lymphocytes Absolute Auto 1.65 K/mm3 (0.9-3.2); Lymphocytes Percent Auto 9.7 % (18.3-44.2); Mean Corpuscular HGB Conc 34.5 g/dl (32-36); Mean Corpuscular Hemoglobin 30.3 pg (26-34); Mean Corpuscular Volume 87.8 fl (80-100); Mean Platelet Volume 11.2 fl (7.4-10.4); Monocytes Absolute Auto 0.4 K/mm3 (0.1-0.6); Monocytes Percent Auto 2.6 % (2.6-8.5); Neutrophils Absolute Auto 14.8 K/mm3 (1.3-6.7); Platelet Count Result 603 k/mm3 (150-375); Red Blood Count 4.85 M/mm3 (4.2-5.4)
[2020-10-11 05:13] LABS: Alanine Aminotransferase 29 U/L (4-35); Alkaline Phosphatase 80 U/L (38-126); Anion Gap 22 mmol/L (8-16); Aspartate Amino Transferase 37 U/L (14-36); Blood Urea Nitrogen 18 mg/dL (7-17); Carbon Dioxide 21 mmol/L (22-30); Chloride 99 mmol/L (98-107); Estimated Glomerular Filt Rate 45; Glucose 247 mg/dL (65-105); Lipase 255 U/L (23-300); Potassium 2.9 mmol/L (3.4-5.0); Sodium 142 mmol/L (137-145)
[2020-10-11 05:24] LABS: Lactic Acid Reflex 5.2 mmol/L (0.7-2.1)
[2020-10-11 05:25] LABS: Troponin I < 0.012 ng/mL (0.000-0.034)
--- NOTE | 2020-10-11 05:58 | ED.GENADULT ---
HPI - General Adult General Chief complaint: Nausea/Vomiting/Diarrhea Stated complaint: fever chills n/v Time Seen by Provider: 10/11/20 04:15 History of Present Illness HPI narrative: Patient 64-year-old female who presents the emergency department with chief complaint of nausea vomiting and diarrhea. Patient states that she has been sick for the last 24 hours had multiple bouts of nausea and vomiting and has had multiple rounds of diarrhea. Patient states her abdomen hurts states is not improved by anything nor is it worsened by anything. Patient denies fever denies chills. Related Data Home Medications Medication Instructions Recorded Confirmed hydrocodone-acetaminophen 1 tablet PO Q4H PRN 08/23/20 08/23/20 lisinopril 20 mg PO DAILY 08/23/20 08/23/20 omeprazole 40 mg PO DAILY 08/23/20 08/23/20 paroxetine HCl 40 mg PO QAM 08/23/20 08/23/20 Allergies Allergy/AdvReac Type Severity Reaction Status Date / Time No Known Allergies Allergy Verified 08/23/20 10:49 Review of Systems Review of Systems: Narrative: A 10 system review of systems was completed on the patient and is negative except for what is stated in the HPI. Nursing and ancillary documentation was reviewed. PENDING SALE TO [facility] Past Medical History Medical History Anxiety Depression Gastroesophageal reflux disease Headache Hospitalized at [facility] for nearly 2 weeks in July 2020 with severe headache. Eventual brain biopsy demonstrated cerebellar inflammation, treated with high-dose steroids. Hyperlipidemia Hypertension Surgical History Surgical History History of craniotomy (~07/2020) Left craniotomy with cerebellar biopsy showing inflammation, treated with high-dose steroids. History of hysterectomy Family History Family History Other Hypertension Social History Social History Social History: Surrogate decision maker: Sindi Cisneros, . Code status: Full code. Smoking status: Never smoker Alcohol intake: former Substance use: never Additional living arrangements comments: Lives in [place] with her . She has no children. They have 4 dogs. Additional occupation/education comments: Retired from [employer]. Gender identity (if verbalized by the patient): Female Spiritual care concerns: No Exam Narrative: Exam Narrative: GENERAL: Well-appearing, well-nourished, and in no acute distress. HEAD: Normocephalic, atraumatic. EYES: PERRLA and EOMI. ENT: Nares clear, no rhinorrhea or epistaxis. Mucous membranes moist. NECK: Supple. CHEST: Clear to auscultation. No respiratory distress. HEART: Tachycardic rate and rhythm. No murmur heard. Normal peripheral pulses. ABDOMEN: Soft, diffusely tender, nondistended, normal active bowel sounds. EXTREMITIES: Normal range of motion. No edema. SKIN: Warm, dry, no rash. NEURO: No focal deficits. Alert and oriented x3. PSYCH: Normal mood and affect. Course Course Emergency Course: Patient presented initially with sinus tachycardia with a rate of 156. After a liter of normal saline and heart rate has come down to 135. Patient's lactate is elevated she is in the process of receiving 30 mL/kg of normal saline boluses. Vital Signs Vital signs: Vital Signs Temperature 36.7 C 10/11/20 03:58 Pulse Rate 150 H 10/11/20 03:58 Respiratory Rate 26 H 10/11/20 03:58 Blood Pressure 146/96 H 10/11/20 03:58 Pulse Oximetry 100 10/11/20 03:58 Temperature 36.7 C 10/11/20 03:58 Pulse Rate 131 H 10/11/20 07:10 Respiratory Rate 20 10/11/20 07:10 Blood Pressure 119/67 10/11/20 07:10 Pulse Oximetry 100 10/11/20 03:58 Medical Decision Making Vital Signs Vital Signs: Vital Signs Temperature 36
[2020-10-11 06:04] LABS: Add Urine Microscopic? YES; Appearance Urine Clear (Clear); Bilirubin Urine Negative (Negative); Blood Urine Negative (Negative); Color Urine Yellow (Yellow); Glucose Urine UA Negative (Negative); Ketones Urine Trace mg/dL (Negative); Leukocyte Esterase Ur Negative LEU/UL (Negative); Mucus Urine Rare /lpf; Nitrate Urine Negative (Negative); Protein Urine 2+ mg/dL (Negative); RBC Urine 0-2 /hpf (0-2); Specific Grav Ur 1.018 (1.001-1.035); Squamous Epithelial Cell Urine Rare /hpf (Few); Urobilinogen Urine Negative mg/dL (<2.0); WBC Urine 0-3 /hpf
[2020-10-11 07:54] LABS: Reflex Lactic Acid Yes or No Add Lactic
[2020-10-11 08:22] LABS: Lactic Acid Reflex 1.3 mmol/L (0.7-2.1)
[2020-10-11] MEDS: KCL 20 MEQ/SW 100 ML 100 ML 50 MEQ IVPB (08:35)
--- NOTE | 2020-10-11 09:11 | ADMGEN ---
This patient, Geno De Jesus, was admitted to IMU Room 204-01. Patient/family oriented to hospital policies and general routines including ID bracelet, bed and alarms, visiting hours, pain management, procedures, bathroom and other care routines, personal items, smoking policy, room service/diet, and visiting hours. Information on how to activate the Rapid Response Team has been discussed. Patient/Family are encouraged to report perceived risks to care and to ask questions if they do not understand what they are told or what they should do.
[2020-10-11] MEDS: SODIUM CHLORIDE 0.9% IV 1,000 ML 150 ML IV CONT (10:11)
[2020-10-11] MEDS: ATORVASTATIN 20 MG TABLET PO (10:53)
[2020-10-11] MEDS: lisinopriL 20 MG TABLET PO (10:53)
[2020-10-11] MEDS: PANTOPRAZOLE 40 MG TABLET PO ×2 (10:54→16:03)
[2020-10-11] MEDS: PARoxetine 20 MG TABLET 40 MG PO (10:54)
--- NOTE | 2020-10-11 11:24 | PM.IMHP ---
H&P: HPI History of Present Illness Date/Time: 10/11/20 11:24 Chief Complaint: Nausea vomiting diarrhea Narrative: Date of visit 10/11/2020 0930 Geno De Jesus is a 64 year old hypertensive female who presented to the emergency with weakness and 1 week history of diarrhea with nausea and vomiting of 3 days duration. She has had some abdominal cramping but no melena hematochezia. She said her last bowel movement was yesterday and was starting to be formed and less frequent. She has had no recent travel and not taken any antibiotics. Never had episode like this in the past and she has never had a colonoscope. In the emergency room her white count was elevated, lactic acid was elevated , and was given 3 L of saline with her lactic acid falling to normal. CT scan abdomen and pelvis revealed colitis. Potassium was 2.9 and she was admitted with diagnosis of colitis with hypokalemia and lactic acidosis. Review of Systems Review of Systems: Narrative: Constitutional prior to present illness her weight instead her appetite good but she says she has lost probably for 5-10 lb over last week Eye no double vision or scotoma Mouth normal other than dry Pulmonary no shortness breath wheezing or cough CV no chest pain palpitations GI as per present illness has had reflux in the past no dysuria no hematuria Muscle skeletal no particular joint discomfort Integument no skin breakdown rashes Neuropsych no seizures no syncope evaluated in July for severe headaches at [place] with no etiology being found and they have subsided [facility] Past Medical History Medical History Anxiety Depression Gastroesophageal reflux disease Headache Hospitalized at [facility] for nearly 2 weeks in July 2020 with severe headache. Eventual brain biopsy demonstrated cerebellar inflammation, treated with high-dose steroids. Hyperlipidemia Hypertension Surgical History Surgical History History of craniotomy (~07/2020) Left craniotomy with cerebellar biopsy showing inflammation, treated with high-dose steroids. History of hysterectomy Family History Family History (Updated 10/11/20 @ 11:36 by Nitesh Meehan MD) Father , Age 54 lung carcinoma Carcinoma, lung Mother , age 52 of breast cancer Breast cancer Other Hypertension Social History Social History (Updated 10/11/20 @ 11:37 by Nitesh Meehan MD) Social History: Surrogate decision maker: Sindi Cisneros, . Code status: Full code. Smoking status: Never smoker Alcohol intake: current Drinks per week: 1 Substance use: never Substance use type: does not use Additional living arrangements comments: Lives in [place] with her . She has no children. They have 4 dogs. Additional occupation/education comments: Retired from [employer] where she worked for 30 years. Gender identity (if verbalized by the patient): Female Spiritual care concerns: No Meds Home Medications and Allergies Home Medications Medication Instructions Recorded Confirmed Type hydrocodone-acetaminophen 1 tablet PO Q6H PRN 08/23/20 10/11/20 History lisinopril 20 mg PO DAILY 08/23/20 10/11/20 History omeprazole 40 mg PO DAILY 08/23/20 10/11/20 History paroxetine HCl 40 mg PO QAM 08/23/20 10/11/20 History amitriptyline 25 mg PO HS 10/11/20 10/11/20 History atorvastatin 20 mg PO DAILY 10/11/20 10/11/20 History Allergies Allergy/AdvReac Type Severity Reaction Status Date / Time No Known Allergies Allergy Verified 08/23/20 10:49 Vital Signs Vital Signs - 24 hr 10/11/20 03:58 10/11/20 05:28 10/11/20 05:30 Temperature 36.7 C Pulse Rate 150 H 135 H 146 H Respiratory Rate 26 H Blood Pressure 146/96 H 162/102 H Pulse Oximetry 100 10/11/20 05:31 10/11/20 05:33 10/11/20 05:45 Temperature
[2020-10-11 16:23] LABS: Anion Gap 11 mmol/L (8-16); Blood Urea Nitrogen 16 mg/dL (7-17); Carbon Dioxide 25 mmol/L (22-30); Chloride 109 mmol/L (98-107); Estimated CRCL calculation 53 ml/min; Estimated Glomerular Filt Rate > 60; Glucose 118 mg/dL (65-105); Magnesium 0.2 mg/dL (1.6-2.3); Phosphorus 2.9 mg/dL (2.5-4.5); Potassium 3.2 mmol/L (3.4-5.0); Sodium 145 mmol/L (137-145)
[2020-10-11] MEDS: MAGNESIUM SULF 4 GM/WATER100ML 4 GM/100 ML BAG IVPB (17:42)
[2020-10-11] MEDS: MAGNESIUM SULF 2 GM/WATER 50ML 2 GM/50 ML BAG IVPB (17:43)
--- NOTE | 2020-10-11 18:45 | PC.NURSE ---
RN went into patients room to transfer to medical floor. Patient woke up and could not form sentences when RN asked patient questions and patient looked at RN frantically. RN did a neuro assessment. All extremities where equal strength. Pupils Equal and reactive. Dr. Meehan called and at bedside with dr. jacome to assess patient. Vital signs taken and reported. Placed patient on 4L oxygen for a 81% saturation. CT of Head ordered and taken. Will continue to monitor patient. Patient placed back in IMU status per dr. meehan.
[2020-10-11 19:04] LABS: Glucose Point of Care 160 (65-105)
[2020-10-11 19:15] LABS: Alveolar/Arterial O2 Gradient 104.2 mmHg; Base Excess ABG -4.5 mEq/l (+/-2.0); Fractional Inspired Oxygen 36 %; HCO3 ABG 19.1 mEq/l (22.0-26.0); Oxygen Content ABG 3.5 %vol (16.0-22.0); Oxygen Saturation ABG 98.8 % (95.0-100.0); Oxyhemoglobin 98.4 % THb (90.0-100.0); PCO2 ABG 25.4 mmHg (35.0-45.0); PO2 FiO2 Ratio Arterial Blood 3.42 %; pH ABG 7.495 (7.350-7.450)
[2020-10-11 19:18] LABS: Device NASAL CANNULA; Modified Allen's Test Pass; Site Drawn LEFT RADIAL; Total Hemoglobin 2.3 g/dL (12.0-18.0)
[2020-10-11] MEDS: HYDROcodone/acetaminophen (*CRX) 5-325 MG TABLET 1 TAB PO (20:31)
[2020-10-11] MEDS: AMITRIPTYLINE HCL 25 MG TABLET PO (20:31)
[2020-10-11] MEDS: ENOXAPARIN 40 MG/0.4 ML SYRINGE SUB-Q (20:31)
[2020-10-12] VITALS (13 sets, daily range): BP systolic 116–130; BP diastolic 59–72; PULSE 89–125; RESP 14–20; TEMP 36.1–37.1; O2SAT 94–99; BMI 29.7
[2020-10-12] MEDS: SODIUM CHLORIDE 0.9% IV 1,000 ML 150 ML IV CONT ×2 (00:48→08:33)
[2020-10-12 03:28] LABS: Hematocrit 30.5 % (37.0-47.0); Hemoglobin 10.3 g/dL (12.0-15.0); Mean Corpuscular HGB Conc 33.8 g/dl (32-36); Mean Corpuscular Hemoglobin 30.4 pg (26-34); Mean Platelet Volume 10.1 fl (7.4-10.4); Platelet Count Result 304 k/mm3 (150-375); Red Blood Count 3.39 M/mm3 (4.2-5.4); Red Cell Distribution Width 13.2 % (11.5-14.5); White Blood Count 16.9 K/mm3 (4.5-10.0)
[2020-10-12 03:44] LABS: Alanine Aminotransferase 19 U/L (4-35); Albumin Level 3.5 g/dL (3.5-5.1); Alkaline Phosphatase 61 U/L (38-126); Anion Gap 3 mmol/L (8-16); Aspartate Amino Transferase 36 U/L (14-36); Bilirubin,Total 0.7 mg/dL (0.2-1.3); Blood Urea Nitrogen 11 mg/dL (7-17); Carbon Dioxide 29 mmol/L (22-30); Chloride 110 mmol/L (98-107); Estimated CRCL calculation 60 ml/min; Estimated Glomerular Filt Rate > 60; Glucose 102 mg/dL (65-105); Magnesium 2.1 mg/dL (1.6-2.3); Potassium 3.4 mmol/L (3.4-5.0); Sodium 142 mmol/L (137-145)
--- NOTE | 2020-10-12 07:32 | P.CDI_ITS ---
CDI Query Clarification Request -Colitis, Most likely infectious by history and has already subsided by history so probably a viral has been documented. -SIRS (Systemic inflammatory response syndrome of non-infectious origin and As evidence by tachycardia and tachypnea and lactic acidosis. Aggressive hydration and culture for possible any bacterial component has been documented Please clarify diagnosis: * SIRS- of non infectious origin * Sepsis- SIRS of infectious origin * Unable to determine <Hiral Webb RN - Last Filed: 10/12/20 07:38>
[2020-10-12] MEDS: PARoxetine 20 MG TABLET 40 MG PO (08:34)
[2020-10-12] MEDS: ATORVASTATIN 20 MG TABLET PO (08:34)
[2020-10-12] MEDS: lisinopriL 20 MG TABLET PO (08:34)
[2020-10-12] MEDS: PANTOPRAZOLE 40 MG TABLET PO ×2 (08:34→17:14)
[2020-10-12] MEDS: POTASSIUM CHLORIDE 20 MEQ TABLET 40 MEQ PO ×2 (13:17→17:14)
--- NOTE | 2020-10-12 15:42 | PM.IMPN ---
Progress Note: A&P Assessment and Plan (1) Colitis: Code(s): K52.9 - Noninfective gastroenteritis and colitis, unspecified Status: Acute Assessment and Plan: Most likely infectious by history and rapidly improving so probably viral but if further stools will culture and will cover with Zosyn especially with leukocytosis (2) Hypokalemia: Code(s): E87.6 - Hypokalemia Status: Acute Assessment and Plan: K 3.4 today and further replacement. Mag 2.1 after 0.2 1/3 and 6 gm of magsulfate (3) Anxiety: Code(s): F41.9 - Anxiety disorder, unspecified Status: Acute Assessment and Plan: Continue her amitriptyline and paroxetine (4) Gastroesophageal reflux disease: Code(s): K21.9 - Gastro-esophageal reflux disease without esophagitis Status: Acute Assessment and Plan: Continue your PPI (5) Hypertension: Code(s): I10 - Essential (primary) hypertension Status: Acute Assessment and Plan: Continue her LINO-inhibitor since pressure is adequate (6) DVT prophylaxis: Code(s): Z29.9 - Encounter for prophylactic measures, unspecified Status: Acute Assessment and Plan: Lovenox (7) Sepsis: Code(s): A41.9 - Sepsis, unspecified organism Status: Acute Assessment and Plan: resolving with lactic acid normal and pulse decreasing. Continue antibiotics and follow WBC (8) Neurological symptoms: Code(s): R29.90 - Unspecified symptoms and signs involving the nervous system Status: Acute Assessment and Plan: Cleared quickly yesterday.. CT no acute changes.. May have even had a seizure with low magnesium. At this point no further evaluation since she is currently followed at [facility] by neurological service and was actually scheduled to have follow-up MRI there today Subjective Date/time seen: 10/12/20 15:42 Interval history: Date of visit 10/12. 64-year-old hypertensive lady admitted with 1 week history diarrhea followed by nausea and vomiting with dehydration, lactic acidosis, and evidence of colitis on CT scan. With hydration and antibiotic she feels much better today. She has had no further diarrhea stools and none for culture. Tolerating liquids well and is hungry Had with episode last evening where she had trouble with garbled speech and she is amnesic of the episode. CT was unremarkable and quickly cleared. She has had extensive workups including brain biopsy at [place] and is following up there. Exam Narrative: Exam Narrative: Blood pressure 120/64 pulse is 96 had been as high as 150 on arrival to the emergency room she is afebrile respirations 16 per minute Pupil equal reactive light sclera anicteric Neck Lungs clear no wheezing or consolidation CV tachy no murmurs or gallops Abdomen soft bowel increased and nontender Extremities without edema distal pulses are 2+ Neuro alert cooperative no focal deficits cranial nerves 2-12 are still intact speech back to baseline Integument no skin breakdown rashes Objective Data Vital Signs Vital Signs: Vital Signs - 24 hr 10/11/20 16:00 10/11/20 19:44 10/11/20 20:00 Temperature 36.0 C L 36.5 C Pulse Rate 126 H 138 H 140 H Respiratory Rate 20 20 20 Blood Pressure 147/76 H 129/66 Pulse Oximetry 92 90 90 10/11/20 22:00 10/11/20 23:26 10/12/20 00:00 Temperature 36.2 C L Pulse Rate 128 H 125 H 117 H Respiratory Rate 18 18 Blood Pressure 123/63 Pulse Oximetry 98 98 10/12/20 02:00 10/12/20 03:48 10/12/20 04:00 Temperature 36.4 C L Pulse Rate 104 H 96 106 H Respiratory Rate 18 20 Blood Pressure 116/68 Pulse Oximetry 98 95 10/12/20 06:00 10/12/20 08:00 10/12/20 10:00 Temperature 36.5 C Pulse Rate 91 125 H 113 H Respiratory Rate 20 Blood Pressure 122/63 Pulse Oximetry 95 10/12/20 12:00 10/12/20 14:00 Temperature 36.1 C L Pulse Rate 100 95 Respiratory Rate 20 Blood Pressure 120/63 Pulse Oximetry 96
--- NOTE | 2020-10-12 18:18 | PC.NURSE ---
This patient, Geno De Jesus, was transferred to [facility] on 10/12/20 at 1818. Personal belongings sent with patient. Report given to HAL Burgess. Appropriate documentation and medication sent with patient.
[2020-10-12] MEDS: SODIUM CHLORIDE 0.9% IV 1,000 ML 100 ML IV CONT (19:25)
[2020-10-12] MEDS: AMITRIPTYLINE HCL 25 MG TABLET PO (20:43)
[2020-10-12] MEDS: HYDROcodone/acetaminophen (*CRX) 5-325 MG TABLET 1 TAB PO (20:44)
[2020-10-12] MEDS: ENOXAPARIN 40 MG/0.4 ML SYRINGE SUB-Q (20:45)
[2020-10-13 03:59] VITALS: BP 124/70; PULSE 82; RESP 20; TEMP 36.5; O2SAT 96
[2020-10-13] MEDS: SODIUM CHLORIDE 0.9% IV 1,000 ML 100 ML IV CONT (05:33)
[2020-10-13 05:44] LABS: Basophils Absolute Auto 0.1 K/mm3 (0.0-0.1); Basophils Percent Auto 0.5 % (0.2-1.2); Eosinophils Absolute Auto 0.1 K/mm3 (0-0.3); Hematocrit 27.5 % (37.0-47.0); Hemoglobin 9.3 g/dL (12.0-15.0); Immature Granulocyte Absolute 0.03 K/mm3 (0.00-0.031); Immature Granulocyte Percent A 0.3 % (0-0.5); Lymphocytes Absolute Auto 3.29 K/mm3 (0.9-3.2); Lymphocytes Percent Auto 35.2 % (18.3-44.2); Mean Corpuscular HGB Conc 33.8 g/dl (32-36); Mean Corpuscular Hemoglobin 30.5 pg (26-34); Mean Corpuscular Volume 90.2 fl (80-100); Mean Platelet Volume 10.3 fl (7.4-10.4); Monocytes Absolute Auto 0.7 K/mm3 (0.1-0.6); Monocytes Percent Auto 7.6 % (2.6-8.5); Neutrophils Absolute Auto 5.2 K/mm3 (1.3-6.7); Neutrophils Percent Auto 55.4 % (45.5-73.1); Platelet Count Result 274 k/mm3 (150-375); Red Blood Count 3.05 M/mm3 (4.2-5.4); White Blood Count 9.4 K/mm3 (4.5-10.0)
[2020-10-13 06:09] LABS: Alanine Aminotransferase 21 U/L (4-35); Albumin Level 3.1 g/dL (3.5-5.1); Alkaline Phosphatase 56 U/L (38-126); Anion Gap 5 mmol/L (8-16); Aspartate Amino Transferase 39 U/L (14-36); Bilirubin,Total 0.8 mg/dL (0.2-1.3); Blood Urea Nitrogen 4 mg/dL (7-17); Calcium 7.1 mg/dL (8.4-10.2); Carbon Dioxide 25 mmol/L (22-30); Chloride 110 mmol/L (98-107); Estimated CRCL calculation 84 ml/min; Estimated Glomerular Filt Rate > 60; Glucose 86 mg/dL (65-105); Magnesium 1.5 mg/dL (1.6-2.3); Phosphorus 2.5 mg/dL (2.5-4.5); Potassium 3.5 mmol/L (3.4-5.0); Sodium 140 mmol/L (137-145)
[2020-10-13 08:00] VITALS: BP 142/84; PULSE 93; RESP 14; O2SAT 98
[2020-10-13] MEDS: ATORVASTATIN 20 MG TABLET PO (08:50)
[2020-10-13] MEDS: PANTOPRAZOLE 40 MG TABLET PO (08:50)
[2020-10-13] MEDS: PARoxetine 20 MG TABLET 40 MG PO (08:50)
[2020-10-13] MEDS: lisinopriL 20 MG TABLET PO (08:50)
[2020-10-13] MEDS: MAGNESIUM SULFATE 3GM/D5W100ML 3 GM/100 ML BAG IVPB (11:02)
[2020-10-13 12:00] VITALS: BP 155/84; PULSE 93; RESP 14; O2SAT 97
--- NOTE | 2020-10-13 13:16 | PM.DS ---
DS: Admitting Diagnosis Admitting Diagnosis Admitting Diagnosis: Abd pain DS: Discharge Diagnosis Discharge Diagnosis (1) Sepsis: Code(s): A41.9 - Sepsis, unspecified organism Status: Acute (2) Colitis: Code(s): K52.9 - Noninfective gastroenteritis and colitis, unspecified Status: Acute (3) Hypokalemia: Code(s): E87.6 - Hypokalemia Status: Acute (4) Hypomagnesemia: Code(s): E83.42 - Hypomagnesemia Status: Acute (5) Anxiety: Code(s): F41.9 - Anxiety disorder, unspecified Status: Acute (6) Gastroesophageal reflux disease: Code(s): K21.9 - Gastro-esophageal reflux disease without esophagitis Status: Acute (7) Hypertension: Code(s): I10 - Essential (primary) hypertension Status: Acute (8) DVT prophylaxis: Code(s): Z29.9 - Encounter for prophylactic measures, unspecified Status: Acute (9) Neurological symptoms: Code(s): R29.90 - Unspecified symptoms and signs involving the nervous system Status: Acute (10) GILDARDO (acute kidney injury): Code(s): N17.9 - Acute kidney failure, unspecified Status: Acute (11) Dehydration: Code(s): E86.0 - Dehydration Status: Acute DS: Summary Hospital Course Hospital Course: Patient is a 64-year-old woman with a history of hypertension, who presented to the ER with abdominal pain, weakness, diarrhea for 1 week then worsening symptoms of nausea, vomiting for 3 days. Initial labs showed afebrile, tachycardic at 150, respiratory rate 26, blood pressure 146/96, oxygen saturation 100% on room air. Leukocytosis at 17,000, with a left shift, dehydration with GILDARDO creatinine 1.2, BUN 18, hypokalemia at 2.9, normal lactic, normal troponin, normal lipase normal LFTs. Urinalysis showed no signs of infection. CT abdomen pelvis showed Mild apparent wall thickening of the ascending and distal transverse colon which could be due to incomplete distention or possibly mild colitis. Gastric distention, correlate for gastritis. CT Head showed No acute intracranial abnormality. She was admitted into the hospital for sepsis, due to possible colitis infection, placed on IV fluids for dehydration in GILDARDO, replenish electrolytes due to diarrhea. She was feeling much better and only had 1 bowel movement that was much improved. Her diet was advanced since she was tolerating regular diet without any nausea, vomiting, abdominal pain. She was improving on antibiotics so she was discharged home to continue with 8 more days oral antibiotics and probiotics. Patient wants to go home and is feeling better. Patient understands agrees the plan all questions answered. Status at Discharge Cognitive/behavioral status at discharge: Stable, improved. Time Spent with Patient Time attestation: Total time spent providing and/or coordinating discharge services: 40 Time spent: Greater than 30 minutes Exam Narrative: Exam Narrative: General: 64-year-old woman laying flat in bed, on her right side taking a nap. Appears comfortable. In no acute distress. Skin: No jaundice or cyanosis. Good skin turgor. Neck: Full range of motion. Supple. Respiratory: Lungs are clear to auscultation bilaterally. No bony chest wall tenderness. Cardiovascular: The heart has a regular rate and rhythm without murmur. Lower extremities: No lower extremity edema. Distal pulses are easily palpated. No calf tenderness to palpation. Gastrointestinal: Healed surgical scar noted from umbilicius down to suprapubic area. The abdomen is soft, nontender and nondistended with active bowel sounds. Psychiatric: Lucid and oriented. Memory intact. Neurologic: No focal deficits. Speech is clear. No facial drooping. DS: Data Data Completed and Pending Labs on day of discharge: Labs from last 24 hours 10/13/20 10/13/20 05:32 05:32 WBC 9.4 RBC 3.05 L Hgb 9.3 L Hct 27
[2020-10-13] MEDS: ONDANSETRON INJ 4 MG/2 ML VIAL IV PUSH (13:55)
--- NOTE | 2020-10-13 13:58 | PC.NURSE ---
1400-as pt was preparing for D/C, stated she felt nauseous. Medication given and pt laid down in bed. Provider called and told to watch pt and call back when better. Will continue to monitor.
--- NOTE | 2020-10-13 14:50 | PC.NURSE ---
1450-pt states she feels much better. Informed provider and she stated to continue D/C. Pt agreeable.
--- NOTE | 2020-10-13 15:26 | PC.NURSE ---
1522-pt given D/C orders and instructions. Questions answered and verbalized understanding. AOx4. PIV removed intact. No nausea or other distress reported. Taken via wheelchair to waiting vehicle. No distress noted or verbalized at time of departure.
== END 2020-10-13 15:26 | disposition home or self-care (01) | DRG 872 ==
LOC: ANHED 07:45 → ANHIMU 08:20 → ANHCPC 10-13 07:01 → ANHIMU 10-15 11:11
PROVIDERS: Internal Medicine; Admitting Provider Family Medicine; Emergency Provider Emergency Medicine; PCP Internal Medicine; Visit Provider Physician Assistant
DX: A41.9 Sepsis, unspecified organism (principal); A09 Infectious gastroenteritis and colitis, unspecified; K21.9 Gastro-esophageal reflux disease without esophagitis; E87.6 Hypokalemia; R29.90 Unspecified symptoms and signs involving the nervous system; F41.9 Anxiety disorder, unspecified; I10 Essential (primary) hypertension; E78.5 Hyperlipidemia, unspecified; Z28.21 Immunization not carried out because of patient refusal; Z79.899 Other long term (current) drug therapy
CPT/HCPCS: 36415; 36600; 51701; 70450; 71045; 74177; 80048; 80053; 80076; 81001; 82805; 83605; 83690; 83735; 84100; 84484; 85025; 85027; 87040; 93005; 96361; 96374; 96375; 96376; 99285; A9270; J1650; J2270; J2405; J2543; J3475; J3480; J7030; Q9967

== ENCOUNTER 2020-12-06 10:53 | Inpatient (IN) | payer MEDICARE, MEDICAID, SELFPAY ==
[2020-12-06] VITALS (13 sets, daily range): BP systolic 117–175; BP diastolic 61–109; PULSE 111–136; RESP 14–25; TEMP 36.2–36.9; O2SAT 93–100
--- NOTE | ~2020-12-06 | CT_ITS ---
EXAMINATION:CT chest high resolution wo wv DATE: 12/08/2020 09:25 INDICATION: Pneumatocele. TECHNIQUE: Computed tomography (CT) of the chest was performed without intravenous contrast. Automate d exposure control and iterative reconstruction technique were employed. The dose-length product (DLP ) was 195.85 mGy-cm. COMPARISON: CT abdomen and pelvis 12/06/2020 FINDINGS: There is mild emphysema. There is widespread smooth septal thickening in the lungs with rel atively mild peripheral groundglass opacities, consistent with pulmonary edema. There are small pleur al effusions. The heart size is normal. No pericardial effusion. There is severe thoracic spondylosis . IMPRESSION: 1. Mild emphysema. 2. Moderate pulmonary edema, new from 12/06/2020. 3. Small pleural effusions. Reviewed, dictated and finalized at location A. CHECKER
--- NOTE | ~2020-12-06 | CT_ITS ---
EXAMINATION: CT abdomen pelvis wo con DATE: 12/06/2020 12:08 INDICATION: Generalized abdominal pain. Nausea and vomiting. TECHNIQUE: Computed tomography (CT) of the abdomen and pelvis was performed without intravenous contr ast. Automated exposure control and iterative reconstruction technique were employed. Exam dose: 369 .53 mGy-cm total exam DLP. COMPARISON: 10/11/2020 CT abdomen pelvis FINDINGS: There are bilateral lower lobe pneumatoceles. No infiltrate or consolidation at the include d lung bases. Normal heart size. No pericardial or pleural effusion. The liver, spleen, pancreas, and adrenal glands and kidneys are unremarkable on this limited noncontr ast examination. The gallbladder is present. No pericholecystic fluid or fat stranding. No bile duct or pancreatic duct dilatation. No urinary tract calculus or hydroureteronephrosis. Normal caliber of the abdominal aorta, with occasional atherosclerotic calcifications. No intraperito tabitha or retroperitoneal or pelvic mass lesion or adenopathy or ascites. The urinary bladder is relati vely evacuated and unremarkable. Status post hysterectomy. Probable small hiatal hernia. There is a fluid level in the rectosigmoid area. No bowel obstruction, bowel wall thickening, pneumat osis or intraperitoneal free air is evident. Severe degenerative disc disease at L5-S1. There is degenerative change at the apophyseal joints with associated grade 1 anterolisthesis at L3-4 and L4-5. No suspicious osteolytic or osteoblastic lesions. IMPRESSION: Bilateral lower lobe pneumatocele Probable small hiatal hernia Status post hysterectomy Fluid level in the rectosigmoid area; no bowel obstruction is evident. Consider barium enema or colon oscopy if the patient is not had any such examination recently. Reviewed, dictated and finalized at Location A. Reviewed, dictated and finalized at location A. FIRER IMPRESSION: Bilateral lower lobe pneumatocele Probable small hiatal hernia Status post hysterectomy Fluid level in the rectosigmoid area; no bowel obstruction is evident. Consider barium enema or colonoscopy if the patient is not had any such examination rec ently.
--- NOTE | 2020-12-06 10:51 | ED.NAVMDI ---
HPI - Nausea/Vomiting/Diarrhea General Chief complaint: Nausea/Vomiting/Diarrhea Stated complaint: n/v/weakness History of Present Illness HPI Narrative: 65 yo female w/ h/o htn presents to the ED for nausea and vomiting. She has had nausea, vomiting, and diarrhea for the past week. She is not tolerating anything PO. This is associated with generalized mild abdominal pain. She reports a recent illness with similar symptoms, she was told that she had a colon infection at that time. Related Data Home Medications Medication Instructions Recorded Confirmed lisinopril 20 mg PO DAILY 08/23/20 12/06/20 omeprazole 40 mg PO DAILY 08/23/20 12/06/20 paroxetine HCl 40 mg PO QAM 08/23/20 12/06/20 atorvastatin 20 mg PO DAILY 10/11/20 12/06/20 Allergies Allergy/AdvReac Type Severity Reaction Status Date / Time No Known Allergies Allergy Verified 12/06/20 11:10 Review of Systems Review of Systems: All systems reviewed & are unremarkable except as noted in HPI and below Constitutional: Constitutional: Reports fatigue, Denies fever(s) and Reports weakness ENT: Denies sore throat Cardiovascular: Cardiovascular: Denies chest pain Respiratory: Respiratory: Denies dyspnea Gastrointestinal: Gastrointestinal: Reports abdominal pain, Reports diarrhea, Reports nausea and Reports vomiting Genitourinary: Genitourinary: Denies hematuria and Denies dysuria Musculoskeletal: Musculoskeletal: Denies back pain Neurologic: Denies confusion, Denies syncope and Reports weakness PMF Past Medical History Medical History (Updated 12/09/20 @ 19:17 by Avinash Garcia MD) Abdominal pain Anxiety Depression Gastroesophageal reflux disease Headache Hospitalized at [facility] for nearly 2 weeks in July 2020 with severe headache. Eventual brain biopsy demonstrated cerebellar inflammation, treated with high-dose steroids. Hyperlipidemia Hypertension Leukocytosis Tachycardia Surgical History Surgical History History of craniotomy (~07/2020) Left craniotomy with cerebellar biopsy showing inflammation, treated with high-dose steroids. History of hysterectomy Family History Family History Father , Age 54 lung carcinoma Carcinoma, lung Mother , age 52 of breast cancer Breast cancer Other Hypertension Social History Social History Social History: Surrogate decision maker: Sindi Cisneros, . Code status: Full code. Smoking status: Never smoker Alcohol intake: current Drinks per week: 0 Substance use: never Substance use type: does not use Additional living arrangements comments: Lives in [place] with her . She has no children. They have 4 dogs. Additional occupation/education comments: Retired from [employer] where she worked for 30 years. Gender identity (if verbalized by the patient): Female Spiritual care concerns: No Exam Const: General: no acute distress, alert and ill appearing acutely HENMT: Mouth: Yes dry mucous membranes Eyes: Pupils: Equal, round and reactive pupils present Resp: Effort & Inspection: normal respiratory effort Auscultation: clear to auscultation bilaterally Cardio: Rate: tachycardic Rhythm: regular rhythm GI: GI Palp: Yes Soft to palpation, Yes Tenderness to palpation present (GI), No Guarding due to palpation present (GI) and No Rebound tenderness present Skin: General skin exam: normal color Neuro: General: patient oriented x3, moves all extremities, no focal motor deficits and CN's II-XI intact bilaterally Speech: Abnormal speech present other (dysarthric) Extrem: General: normal to inspection and no edema Course Vital Signs Vital signs: Vital Signs Temperature 36.5 C 12/06/20 11:00 Pulse Rate 128 H 12/06/20 11:00 Respiratory
--- NOTE | 2020-12-06 10:55 | ECG_ITS ---
Measurements Intervals [place] Rate: 125 P: 70 RI: 147 QRS: 25 QRSD: 73 T: 68 QT: 336 QTc: 485 Interpretive Statements SINUS TACHYCARDIA LEFT VENTRICULAR HYPERTROPHY WITH ST-T CHANGE ST-T WAVE ABNORMALITY IN ANTEROLAT/INF LEADS- CONSIDER ISCHEMIA BASELINE ARTIFACT- III, V4 ABNORMAL ECG Electronically Signed On 12-07-2020 8:08:37 HOSPITAL ADMINISTRATIVE ASSISTANT by Natalio Rose D.O.
[2020-12-06 11:18] LABS: Basophils Percent Auto 0.2 % (0.2-1.2); Eosinophils Absolute Auto 8.7 K/mm3 (0-0.3); Eosinophils Percent Auto 33.7 % (0-4.4); Hematocrit 42.7 % (37.0-47.0); Hemoglobin 14.9 g/dL (12.0-15.0); Immature Granulocyte Absolute 0.13 K/mm3 (0.00-0.031); Immature Granulocyte Percent A 0.5 % (0-0.5); Lymphocytes Percent Auto 4.6 % (18.3-44.2); Mean Corpuscular HGB Conc 34.9 g/dl (32-36); Mean Corpuscular Volume 86.1 fl (80-100); Mean Platelet Volume 10.7 fl (7.4-10.4); Monocytes Absolute Auto 1.3 K/mm3 (0.1-0.6); Monocytes Percent Auto 5.1 % (2.6-8.5); Neutrophils Absolute Auto 14.5 K/mm3 (1.3-6.7); Neutrophils Percent Auto 55.9 % (45.5-73.1); Platelet Count Result 599 k/mm3 (150-375); Red Blood Count 4.96 M/mm3 (4.2-5.4); Red Cell Distribution Width 13.4 % (11.5-14.5)
[2020-12-06] MEDS: SODIUM CHLORIDE 0.9% IV 2,000 ML 999 ML IV CONT (11:19)
[2020-12-06 11:34] LABS: Alanine Aminotransferase 19 U/L (4-35); Albumin Level 5.1 g/dL (3.5-5.1); Alkaline Phosphatase 73 U/L (38-126); Anion Gap 23 mmol/L (8-16); Aspartate Amino Transferase 31 U/L (14-36); Bilirubin,Total 0.6 mg/dL (0.2-1.3); Blood Urea Nitrogen 16 mg/dL (7-17); Calcium 8.3 mg/dL (8.4-10.2); Carbon Dioxide 31 mmol/L (22-30); Chloride 92 mmol/L (98-107); Estimated CRCL calculation 26 ml/min; Estimated Glomerular Filt Rate 27; Glucose 184 mg/dL (65-105); Lipase 187 U/L (23-300); Potassium 2.2 mmol/L (3.4-5.0); Sodium 146 mmol/L (137-145)
[2020-12-06 11:40] LABS: Add Urine Microscopic? YES; Appearance Urine Clear (Clear); Bacteria Urine Trace /hpf; Bilirubin Urine Negative (Negative); Blood Urine Negative (Negative); Color Urine Amber (Yellow); Glucose Urine UA 1+ mg/dL (Negative); Hyaline Casts Urine 50+ /lpf; Ketones Urine 2+ mg/dL (Negative); Leukocyte Esterase Ur Negative LEU/UL (Negative); Mucus Urine Few /lpf; Nitrate Urine Negative (Negative); Protein Urine 3+ mg/dL (Negative); Specific Grav Ur 1.024 (1.001-1.035); Squamous Epithelial Cell Urine Rare /hpf (Few); Urobilinogen Urine Negative mg/dL (<2.0)
[2020-12-06 11:47] LABS: Lactic Acid Reflex 3.3 mmol/L (0.7-2.1)
--- NOTE | 2020-12-06 12:29 | PC.NURSE ---
Pt updated and given water po per order Dr. Garcia. Pt states she feels weak but otherwise feels a lot better. IV KCL stopped, line flushed, and abx initiated as ordered.
[2020-12-06] MEDS: SODIUM CHLORIDE 0.9% IV 1,000 ML 999 ML IV CONT (12:36)
--- NOTE | 2020-12-06 12:50 | PC.NURSE ---
IV abx completed, line flushed and KCL infusion restarted at 125cc/hr.
--- NOTE | 2020-12-06 13:19 | PC.NURSE ---
LILA faxed to [facility]. Per HAL Godfrey, she's transferring a patient out of 340 and after that will have the bed stat cleaned and will call when ready for report. Pt updated; denies needs at present.
[2020-12-06] MEDS: ONDANSETRON INJ 4 MG/2 ML VIAL IV PUSH ×3 (14:20→21:40)
--- NOTE | 2020-12-06 14:20 | PC.NURSE ---
This patient, Geno De Jesus, was admitted to Medical Room 340-01. Patient/family oriented to hospital policies and general routines including ID bracelet, bed and alarms, visiting hours, pain management, procedures, bathroom and other care routines, personal items, smoking policy, room service/diet, and visiting hours. Information on how to activate the Rapid Response Team has been discussed. Patient/Family are encouraged to report perceived risks to care and to ask questions if they do not understand what they are told or what they should do.
--- NOTE | 2020-12-06 14:20 | PC.NURSE ---
Report to floor, preparing to transport. Pt c/o nausea. IV Zofran given for pt c/o nausea. Pt transported to floor. Riri 3rd med RN aware and will let Amrita RN, made aware.
[2020-12-06 14:34] LABS: Reflex Lactic Acid Yes or No Add Lactic
[2020-12-06 15:04] LABS: Lactic Acid 1.7 mmol/L (0.7-2.1)
[2020-12-06] MEDS: LACTATED RINGERS 1,000 ML 150 ML IV CONT (15:05)
--- NOTE | 2020-12-06 17:56 | PCDIET ---
Patient drivers license and medicare card locked in room 340 cabinet with 4 bottles of home medications.
--- NOTE | 2020-12-06 21:48 | PM.IMHP ---
H&P: HPI History of Present Illness Date/Time: 12/06/20 21:48 Chief Complaint: Diarrhea Narrative: This is a pleasant 65 year old female with known speech impediment following a brain infection , HTN, hyperlipidemia who presented to the hospital with a complaint of diffuse abdominal discomfort, nausea, vomiting, and diarrhea for the past 4-5 days. She has had no diarrhea today but she did have 5 episodes of diarrhea yesterday. She denies any rectal bleeding or black stools. Today she had 4 episodes of vomiting and right now she is complaining of nausea. She denies any headache, chest pain, shortness of breath, cough, hematuria, dysuria, or focal neurological deficits. CT abd/pevis revealed a fluid level in the rectosigmoid area; no bowel obstruction is evident. She was found to be septic in the ER tonight w/ tachycardia and leukocytosis. She was started on IV Zosyn. She was also found to have acute renal failure and hypokalemia. IV potassium was replaced by ER provider. On my encounter with her she is currently only complaining of mild nausea. Review of Systems Review of Systems: All systems reviewed & are unremarkable except as noted in HPI and below PMFSH Past Medical History Medical History Abdominal pain Anxiety Depression Gastroesophageal reflux disease Headache Hospitalized at [facility] for nearly 2 weeks in July 2020 with severe headache. Eventual brain biopsy demonstrated cerebellar inflammation, treated with high-dose steroids. Hyperlipidemia Hypertension Surgical History Surgical History History of craniotomy (~07/2020) Left craniotomy with cerebellar biopsy showing inflammation, treated with high-dose steroids. History of hysterectomy Family History Family History Father , Age 54 lung carcinoma Carcinoma, lung Mother , age 52 of breast cancer Breast cancer Other Hypertension Social History Social History Social History: Surrogate decision maker: Sindi Cisneros, . Code status: Full code. Smoking status: Never smoker Alcohol intake: current Drinks per week: 0 Substance use: never Substance use type: does not use Additional living arrangements comments: Lives in [place] with her . She has no children. They have 4 dogs. Additional occupation/education comments: Retired from [employer] where she worked for 30 years. Gender identity (if verbalized by the patient): Female Spiritual care concerns: No Meds Home Medications and Allergies Home Medications Medication Instructions Recorded Confirmed Type lisinopril 20 mg PO DAILY 08/23/20 12/06/20 History omeprazole 40 mg PO DAILY 08/23/20 12/06/20 History paroxetine HCl 40 mg PO QAM 08/23/20 12/06/20 History atorvastatin 20 mg PO DAILY 10/11/20 12/06/20 History Allergies Allergy/AdvReac Type Severity Reaction Status Date / Time No Known Allergies Allergy Verified 12/06/20 11:10 Vital Signs Vital Signs - 24 hr 12/06/20 11:00 12/06/20 11:15 12/06/20 11:30 Temperature 36.5 C Pulse Rate 128 H 136 H 126 H Respiratory Rate 24 H 21 H 24 H Blood Pressure 147/95 H 156/92 H 170/103 H Pulse Oximetry 93 100 100 12/06/20 11:46 12/06/20 12:09 12/06/20 12:15 Temperature Pulse Rate 118 H 126 H 123 H Respiratory Rate 25 H 25 H 15 Blood Pressure 133/61 139/72 149/76 H Pulse Oximetry 99 100 98 12/06/20 12:30 12/06/20 12:45 12/06/20 13:00 Temperature Pulse Rate 124 H 123 H 116 H Respiratory Rate 20 22 H 22 H Blood Pressure 117/71 128/68 Pulse Oximetry 97 96 95 12/06/20 14:30 12/06/20 16:00 12/06/20 19:25 Temperature 36.2 C L 36.9 C Pulse Rate 120 H 111 H 130 H Respiratory Rate 20 14 Blood Pressure 175/85 H 131/
[2020-12-06 22:11] LABS: Anion Gap 9 mmol/L (8-16); Blood Urea Nitrogen 14 mg/dL (7-17); Calcium 6.6 mg/dL (8.4-10.2); Carbon Dioxide 31 mmol/L (22-30); Chloride 103 mmol/L (98-107); Estimated CRCL calculation 39 ml/min; Estimated Glomerular Filt Rate 50; Glucose 113 mg/dL (65-105); Potassium 2.6 mmol/L (3.4-5.0); Sodium 143 mmol/L (137-145)
[2020-12-06 22:27] LABS: Magnesium < 0.2 mg/dL (1.6-2.3)
[2020-12-06] MEDS: MAGNESIUM SULF 2 GM/WATER 50ML 2 GM/50 ML BAG IVPB (23:21)
[2020-12-07] VITALS (10 sets, daily range): BP systolic 128–146; BP diastolic 62–74; PULSE 92–127; RESP 14–16; TEMP 35.8–36.8; O2SAT 92–99
[2020-12-07] MEDS: LACTATED RINGERS 1,000 ML 150 ML IV CONT ×3 (00:43→16:57)
[2020-12-07] MEDS: MAGNESIUM SULF 1 GM/D5W 100 ML 1 GM/100 ML BAG IVPB (02:31)
[2020-12-07 05:37] LABS: Basophils Absolute Auto 0.1 K/mm3 (0.0-0.1); Basophils Percent Auto 0.3 % (0.2-1.2); Eosinophils Percent Auto 0.2 % (0-4.4); Hematocrit 30.2 % (37.0-47.0); Hemoglobin 10.5 g/dL (12.0-15.0); Immature Granulocyte Absolute 0.07 K/mm3 (0.00-0.031); Immature Granulocyte Percent A 0.5 % (0-0.5); Lymphocytes Absolute Auto 2.95 K/mm3 (0.9-3.2); Lymphocytes Percent Auto 19.9 % (18.3-44.2); Mean Corpuscular HGB Conc 34.8 g/dl (32-36); Mean Corpuscular Hemoglobin 29.8 pg (26-34); Mean Corpuscular Volume 85.8 fl (80-100); Mean Platelet Volume 10.9 fl (7.4-10.4); Monocytes Absolute Auto 1.3 K/mm3 (0.1-0.6); Monocytes Percent Auto 8.7 % (2.6-8.5); Neutrophils Absolute Auto 10.5 K/mm3 (1.3-6.7); Neutrophils Percent Auto 70.4 % (45.5-73.1); Platelet Count Result 338 k/mm3 (150-375); Red Blood Count 3.52 M/mm3 (4.2-5.4); Red Cell Distribution Width 13.3 % (11.5-14.5); White Blood Count 14.9 K/mm3 (4.5-10.0)
[2020-12-07 05:55] LABS: Anion Gap 8 mmol/L (8-16); Blood Urea Nitrogen 11 mg/dL (7-17); Calcium 6.7 mg/dL (8.4-10.2); Carbon Dioxide 29 mmol/L (22-30); Chloride 104 mmol/L (98-107); Estimated CRCL calculation 53 ml/min; Estimated Glomerular Filt Rate > 60; Glucose 106 mg/dL (65-105); Potassium 3.1 mmol/L (3.4-5.0); Sodium 141 mmol/L (137-145)
[2020-12-07 07:01] LABS: Magnesium 1.3 mg/dL (1.6-2.3)
[2020-12-07] MEDS: PANTOPRAZOLE SODIUM IV 40 MG VIAL IV PUSH (08:03)
[2020-12-07] MEDS: POTASSIUM CHLORIDE 20 MEQ TABLET 60 MEQ PO (10:08)
[2020-12-07] MEDS: MAGNESIUM SULFATE 3GM/D5W100ML 3 GM/100 ML BAG IVPB (10:08)
--- NOTE | 2020-12-07 13:16 | PCNSR ---
On 12/07/20, the student, Erma Briscoe, provided care and completed [facility] documentation on this patient. I have reviewed the student's documentation and agree with the findings.
--- NOTE | 2020-12-07 14:41 | PM.IMPN ---
Progress Note: A&P Assessment and Plan (1) Colitis: Code(s): K52.9 - Noninfective gastroenteritis and colitis, unspecified Status: Acute Assessment and Plan: Patient presents with nausea/vomiting/diarrhea which are improved today. She has multiple hospital admissions for same. CT abdomen shows fluid level in the rectosigmoid area without obstruction. Advance to clear liquid diet today. Continue IV Zosyn and supportive care with antiemetics, IV hydration. Check stool studies next BM. Appreciate GI recommendations. (2) Sepsis: Qualifiers: Sepsis type: sepsis due to unspecified organism Sepsis acute organ dysfunction status: unspecified Qualified Code(s): A41.9 - Sepsis, unspecified organism Code(s): A41.9 - Sepsis, unspecified organism Status: Acute Assessment and Plan: Evident by leukocytosis and tachycardia both improving. Suspected source is GI. Monitor urine culture, obtain blood cultures. Monitor vital signs and urine output. (3) Dehydration: Code(s): E86.0 - Dehydration Status: Acute Assessment and Plan: Secondary to GI loss with recent vomiting and diarrhea. Improving with IV hydration. Slow rate of IV fluids. (4) GILDARDO (acute kidney injury): Code(s): N17.9 - Acute kidney failure, unspecified Status: Resolved Assessment and Plan: Resolved with IV hydration. Monitor renal function. (5) Hypokalemia: Code(s): E87.6 - Hypokalemia Status: Acute Assessment and Plan: With hypomagnesemia. Continue to replace potassium and magnesium as needed. Will recheck them this evening and again in AM. (6) Hyperlipidemia: Qualifiers: Hyperlipidemia type: unspecified Qualified Code(s): E78.5 - Hyperlipidemia, unspecified Code(s): E78.5 - Hyperlipidemia, unspecified Status: Chronic Assessment and Plan: Resume home statin therapy. (7) Hypertension: Qualifiers: Hypertension type: essential hypertension Qualified Code(s): I10 - Essential (primary) hypertension Code(s): I10 - Essential (primary) hypertension Status: Chronic Assessment and Plan: Blood pressure stable, a bit elevated this afternoon. Resume her home lisinopril and monitor BP, monitor renal function. (8) Gastroesophageal reflux disease: Qualifiers: Esophagitis presence: without esophagitis Qualified Code(s): K21.9 - Gastro-esophageal reflux disease without esophagitis Code(s): K21.9 - Gastro-esophageal reflux disease without esophagitis Status: Chronic Assessment and Plan: Continue PPI. Subjective Date/time seen: 12/07/20 1345 Interval history: Ms. De Jesus is a pleasant 65yo F admitted for colitis. She is seen in follow-up this afternoon with her , Sindi, at the bedside. She is feeling better today and has not had any vomiting or diarrhea today. Tolerated a clear liquid tray without n/v or abdominal pain. She denies chest pain or feeling short of breath. Review of Systems Review of Systems: All systems reviewed & are unremarkable except as noted in HPI and below Exam Narrative: Exam Narrative: General: Female resting supine in bed in no acute distress. Chronic speech impediment but speech is understandable. HEENT: Normocephalic, EOMI, oral mucosa moist. Cardiovascular: Rate and rhythm are regular. Respiratory: Lungs clear to auscultation bilaterally. Respirations even and non-labored. Abdomen: Soft, non-distended, bowel sounds present. Nontender to palpation. Extremities: Peripheral pulses intact. No ed
--- NOTE | 2020-12-07 15:08 | PHAR ---
PT'S HOME MED RILUZONE 50 MG TABS VERIFIED BY PHARMACY
--- NOTE | 2020-12-07 16:37 | WPDGICN ---
Assessment and Plan Assessment and plan (1) Colitis: Code(s): K52.9 - Noninfective gastroenteritis and colitis, unspecified Status: Acute Assessment and Plan: on antibiotics pending blood culture, get stool samples she is already doing better colonoscopy in ~ 3 weeks (when colitis improves) (2) Sepsis: Code(s): A41.9 - Sepsis, unspecified organism Status: Acute Assessment and Plan: on medical treatment and improving (3) Abdominal pain: Code(s): R10.9 - Unspecified abdominal pain Status: Acute Assessment and Plan: much better (4) Dehydration: Code(s): E86.0 - Dehydration Status: Acute (5) GILDARDO (acute kidney injury): Code(s): N17.9 - Acute kidney failure, unspecified Status: Acute Assessment and Plan: treated and better (6) Hypomagnesemia: Code(s): E83.42 - Hypomagnesemia Status: Acute Assessment and Plan: on magnesium and K supplement monitor and replace as indicated (7) Hypokalemia: Code(s): E87.6 - Hypokalemia Status: Acute GI Consult Note Consult date/time: 12/07/20 16:37 Reason for consult: colitis HPI: Geno De Jesus is a 65 year old female known speech impediment following a cerebellar inflammation by brain biopsy more than a year ago (recent follow up with neurology at [facility] with normal studies including lumbar puncture and told that inflammation resolved and discharged from neurology), HTN, hyperlipidemia who came to hospital with diffuse abdominal discomfort, nausea, vomiting, and diarrhea for 4-5 days. She denies any rectal bleeding. About 6 months ago she also was admitted with colitis (reviewed previous CT scan that showed mild apparent wall thickening of the ascending and distal transverse colon) and eventually returned to normal. Repeat CT abd/pevis showed fluid level in the rectosigmoid area; no bowel obstruction is evident. She was admitted with diagnosis of sepsis with tachycardia and leukocytosis, started on IV Zosyn with cultures pending, also had acute renal failure and hypokalemia, hypomagnesemia. She is feeling much better now. She never had a colonoscopy. Her spouse is at bedside. Review of Systems Constitutional: Constitutional: Denies difficulty sleeping Eyes: Eyes: Denies blurry vision ENT: Reports system reviewed and no additional complaints, except as documented Cardiovascular: Cardiovascular: Denies chest pain Respiratory: Respiratory: Reports no additional respiratory complaints Gastrointestinal: Gastrointestinal: Reports abdominal pain, Reports diarrhea, Reports nausea and Reports vomiting Genitourinary: Genitourinary: Denies hematuria Musculoskeletal: Musculoskeletal: Reports no additional musculoskeletal complaints Integumentary/Breasts: Skin/Breast: Reports system reviewed and no additional complaints, except as docu Neurologic: Denies confusion Psychiatric: Psychiatric: Denies confusion Endocrine: Endocrine: Denies cold intolerance Hematologic/Lymphatic: Hematologic/Lymphatic: Denies easy bruising PMFSH Past Medical History Medical History Anxiety Depression Gastroesophageal reflux disease Headache Hospitalized at [facility] for nearly 2 weeks in July 2020 with severe headache. Eventual brain biopsy demonstrated cerebellar inflammation, treated with high-dose steroids. Hyperlipidemia Hypertension Surgical History Surgical History History of craniotomy (~07/2020) Left craniotomy with cerebellar biopsy showing inflammation, treated with high-dose steroids. History of hysterectomy Family History Family History Father , Age 54 lung carcinoma Carcinoma, lung Mother , age 52 of breast cancer Breast cancer Other Hypertension Social Histor
[2020-12-07] MEDS: BENZOCAINE/MENTHOL (*BKC) 18 EA LOZENGE 1 LOZENGE PO (16:58)
[2020-12-07 18:02] LABS: Anion Gap 7 mmol/L (8-16); Blood Urea Nitrogen 4 mg/dL (7-17); Calcium 7.3 mg/dL (8.4-10.2); Carbon Dioxide 31 mmol/L (22-30); Chloride 104 mmol/L (98-107); Estimated CRCL calculation 60 ml/min; Estimated Glomerular Filt Rate > 60; Glucose 106 mg/dL (65-105); Potassium 2.9 mmol/L (3.4-5.0); Sodium 142 mmol/L (137-145)
[2020-12-07] MEDS: PARoxetine 20 MG TABLET 40 MG PO (18:47)
[2020-12-07] MEDS: ATORVASTATIN 20 MG TABLET PO (18:48)
[2020-12-07] MEDS: lisinopriL 20 MG TABLET PO (18:48)
[2020-12-07] MEDS: POTASSIUM CHLORIDE 20 MEQ TABLET 40 MEQ PO (19:45)
[2020-12-07] MEDS: MAGNESIUM OXIDE 200 MG TABLET PO (20:02)
[2020-12-08] VITALS (10 sets, daily range): BP systolic 117–145; BP diastolic 55–78; PULSE 84–115; RESP 16–18; TEMP 36.1–36.9; O2SAT 92–95
--- NOTE | 2020-12-08 | ECHO_ITS ---
Patient Info Name: Geno De Jesus Age: 65 years : 1955 Gender: Female Ht: 60 in Wt: 153 lbs BSA: 1.74 m2 HR: 102 bpm BP: 137 / 65 mmHg Heart Rhythm: Sinus Rhythm Technical Quality: Good Exam Date: 12/08/2020 2:55 PM Exam Location: [facility] Card Pulmonary Patient Status: Inpatient Admit Date: 12/06/2020 Staff Ordering Physician: Winifred Molina PA-C Research Geologist: Ant Thompson RDCS, RT Attending Provider: Sintia Dominguez MD Referring Physician: Tracy NUNN; Exam Type: CA echo doppler color flow Study Info Indications R94.31 - Abnormal electrocardiogram ECG EKG Complete two-dimensional, color flow and Doppler transthoracic echocardiogram is performed. Strain analysis performed. Summary 1. Complete two-dimensional, color flow and Doppler transthoracic echocardiogram is performed. 2. The left ventricle was mildly dilated with mild left ventricular hypertrophy. There is severe global hypokinesis, with sparing of the posterior lateral ash. The visual estimated EF is 30-35% and the measured ejection fraction was 38%. Diastolic function is indeterminate. The global longitudinal strain was moderately decreased at-13%. 3. Left atrial chamber dimension is moderately enlarged. 4. There is mild mitral valve regurgitation. 5. There is mild tricuspid valve regurgitation. 6. Normal sinus rhythm. Left Ventricle Left ventricular chamber dimension is mildly enlarged. Left ventricular systolic function is severely reduced, estimated at 30-35%. There is mildly increased left ventricular wall thickness. Left ventricular septal wall motion is normal. The left ventricular diastolic function is normal. Global longitudinal strain is moderately elevated at 13 %. Right Ventricle Right ventricular chamber dimension is normal. Right ventricular systolic function is normal. Left Atria Left atrial chamber dimension is moderately enlarged. Right Atria Right atrial chamber dimension is normal. Aortic Valve The aortic valve is trileaflet. There is no aortic valve sclerosis. There is no aortic valve stenosis. There is no aortic valve regurgitation. Pulmonic Valve The pulmonic valve is normal. There is no pulmonic valve stenosis. There is no pulmonic regurgitation. Mitral Valve The mitral valve has normal leaflets. There is no mitral valve stenosis. There is mild mitral valve regurgitation. Tricuspid Valve The tricuspid valve leaflets are normal. There is no significant tricuspid valve stenosis. There is mild tricuspid valve regurgitation. No pulmonary hypertension, estimated pulmonary arterial systolic pressure is Empty. Pericardium/Pleural The pericardium appears normal. There is no pericardial effusion. Inferior Vena Cava Dilated inferior vena cava with <50% collapse upon inspiration consistent with Empty right atrial pressure, Empty. Aorta The aortic root size at the sinus of Valsalva is normal. The prox ascending aorta size is normal. Left Ventricular Outflow Tract Name Value Normal LVOT 2D LVOT Diameter 1.9 cm LVOT Doppler LVOT Peak Gradient 6 mmHg
[2020-12-08 06:00] LABS: Basophils Absolute Auto 0.1 K/mm3 (0.0-0.1); Basophils Percent Auto 0.7 % (0.2-1.2); Eosinophils Absolute Auto 0.1 K/mm3 (0-0.3); Hematocrit 30.7 % (37.0-47.0); Hemoglobin 10.1 g/dL (12.0-15.0); Immature Granulocyte Absolute 0.03 K/mm3 (0.00-0.031); Immature Granulocyte Percent A 0.3 % (0-0.5); Lymphocytes Percent Auto 19.8 % (18.3-44.2); Mean Corpuscular HGB Conc 32.9 g/dl (32-36); Mean Corpuscular Hemoglobin 29.7 pg (26-34); Mean Corpuscular Volume 90.3 fl (80-100); Monocytes Absolute Auto 0.8 K/mm3 (0.1-0.6); Monocytes Percent Auto 8.2 % (2.6-8.5); Neutrophils Absolute Auto 6.7 K/mm3 (1.3-6.7); Platelet Count Result 302 k/mm3 (150-375); Red Cell Distribution Width 13.4 % (11.5-14.5); White Blood Count 9.6 K/mm3 (4.5-10.0)
[2020-12-08 06:25] LABS: Alanine Aminotransferase 18 U/L (4-35); Albumin Level 3.3 g/dL (3.5-5.1); Alkaline Phosphatase 55 U/L (38-126); Anion Gap 4 mmol/L (8-16); Aspartate Amino Transferase 34 U/L (14-36); Bilirubin,Total 0.6 mg/dL (0.2-1.3); Blood Urea Nitrogen 3 mg/dL (7-17); CRP 0.9 mg/dL (<1.0); Calcium 7.6 mg/dL (8.4-10.2); Carbon Dioxide 32 mmol/L (22-30); Chloride 106 mmol/L (98-107); Estimated CRCL calculation 69 ml/min; Estimated Glomerular Filt Rate > 60; Glucose 100 mg/dL (65-105); Magnesium 1.7 mg/dL (1.6-2.3); Potassium 3.6 mmol/L (3.4-5.0); Sodium 142 mmol/L (137-145)
[2020-12-08 07:40] LABS: Erythrocyte Sedimentation Rate 53 mm/hr (0-20)
[2020-12-08] MEDS: PANTOPRAZOLE SODIUM IV 40 MG VIAL IV PUSH (09:36)
[2020-12-08] MEDS: ATORVASTATIN 20 MG TABLET PO (09:36)
[2020-12-08] MEDS: PARoxetine 20 MG TABLET 40 MG PO (09:36)
[2020-12-08] MEDS: MAGNESIUM OXIDE 200 MG TABLET PO ×2 (09:36→20:28)
[2020-12-08] MEDS: lisinopriL 20 MG TABLET PO (09:36)
[2020-12-08] MEDS: SODIUM CHLORIDE 0.9% INJ 10 ML 100 ML (09:37)
[2020-12-08] MEDS: LACTATED RINGERS 1,000 ML 100 ML IV CONT (11:40)
--- NOTE | 2020-12-08 14:12 | PM.IMPN ---
Progress Note: A&P Assessment and Plan (1) Colitis: Code(s): K52.9 - Noninfective gastroenteritis and colitis, unspecified Status: Acute Assessment and Plan: patient's diarrhea has improved as has her leukocytosis - will continue Zosyn - C diff, Giardia and Cryptosporidium negative - will need outpatient colonoscopy in around 3 weeks - could be infectious versus inflammatory - await blood cultures before discharge (2) EKG abnormalities: Code(s): R94.31 - Abnormal electrocardiogram [ECG] [EKG] Status: Acute Assessment and Plan: admission EKG showed sinus tachycardia likely due to sepsis with some ST changes and possible LVH - patient continues to be tachycardic despite adequate treatment and resolution of other signs and symptoms - no troponin done on admission since the patient did not have chest pain, will draw 1 to see her baseline to ensure no type 2 infarction - CT of the chest shows new pulmonary edema, fluids have been stopped. - Because of these findings, I am going again echo, baseline troponin and BNP - she has no history of cardiac disease, no indication for cardiology consult this time but await echo results -PE? seems less likely. will await echo and trop. No hypoxia or LE swelling noted (3) Sepsis: Qualifiers: Sepsis type: sepsis due to unspecified organism Sepsis acute organ dysfunction status: unspecified Qualified Code(s): A41.9 - Sepsis, unspecified organism Code(s): A41.9 - Sepsis, unspecified organism Status: Acute Assessment and Plan: resolved -Source of sepsis appears to be GI. - continue Zosyn, leukocytosis have improved (4) Dehydration: Code(s): E86.0 - Dehydration Status: Acute Assessment and Plan: resolved (5) GILDARDO (acute kidney injury): Code(s): N17.9 - Acute kidney failure, unspecified Status: Resolved Assessment and Plan: Resolved with IV fluids (6) Hypokalemia: Code(s): E87.6 - Hypokalemia Status: Acute Assessment and Plan: KCL replaced and better today -mg significantly low -Monitor with daily labs (7) Hyperlipidemia: Qualifiers: Hyperlipidemia type: unspecified Qualified Code(s): E78.5 - Hyperlipidemia, unspecified Code(s): E78.5 - Hyperlipidemia, unspecified Status: Chronic Assessment and Plan: Continue atorvastatin (8) Hypertension: Qualifiers: Hypertension type: essential hypertension Qualified Code(s): I10 - Essential (primary) hypertension Code(s): I10 - Essential (primary) hypertension Status: Chronic Assessment and Plan: Last bp 137/65 -continue home lisinopril (9) Gastroesophageal reflux disease: Qualifiers: Esophagitis presence: without esophagitis Qualified Code(s): K21.9 - Gastro-esophageal reflux disease without esophagitis Code(s): K21.9 - Gastro-esophageal reflux disease without esophagitis Status: Chronic Assessment and Plan: Continue protonix (10) Depression: Code(s): F32.9 - Major depressive disorder, single episode, unspecified Status: Chronic Assessment and Plan: chrnoic with no acute issues -Continue paxil. Additional Plan Time Spent With Patient Time with patient: 25 - 35 minutes Subjective Date/time seen: 12/08/20 14:12 Interval history: Pt is a 65 y/o female here for colitis. pt was seen today and doing well. She had no complaints and is eating and drinking regularly. She has no further abdominal pain or diarrhea. She does not feel her heart racing, have any chest pain, or feeling short of breath. She is able to walk to the bathroom and does not have any dyspnea on exertion. She states that she has no history of cardiac disease. Review of Systems Review of Systems: All systems reviewed & are unremarkable except as noted in
--- NOTE | 2020-12-08 14:14 | ECG_ITS ---
Measurements Intervals [place] Rate: 101 P: 58 NE: 151 QRS: 14 QRSD: 80 T: 37 QT: 353 QTc: 458 Interpretive Statements SINUS TACHYCARDIA BORDERLINE ECG Electronically Signed On 12-08-2020 14:44:04 [employer]ADER by Natalio Rose D.O.
--- NOTE | 2020-12-08 14:20 | PC.NURSE ---
Supervised patient care and reviewed documentation completed by [facility] student nurse Cleve Dexter
--- NOTE | 2020-12-08 14:58 | WPDGIPROGNO ---
Progress Note: A&P Assessment and Plan (1) Colitis: Code(s): K52.9 - Noninfective gastroenteritis and colitis, unspecified Status: Acute Assessment and Plan: much better, no more leukocytosis c diff and giardia negative, stool cultures pending colonoscopy in 3-4 weeks as outpatient will advance diet (2) Leukocytosis: Code(s): D72.829 - Elevated white blood cell count, unspecified Status: Acute Assessment and Plan: resolved, she is feeling much better (3) Abdominal pain: Code(s): R10.9 - Unspecified abdominal pain Status: Acute Assessment and Plan: much better (4) SIRS (systemic inflammatory response syndrome): Code(s): R65.10 - Systemic inflammatory response syndrome (SIRS) of non-infectious origin without acute organ dysfunction Status: Acute Assessment and Plan: resolved (5) Tachycardia: Code(s): R00.0 - Tachycardia, unspecified Status: Acute Assessment and Plan: noted mild tachycardia, repeat CT chest reviewed c/w mild emphysema, moderate pulmonary edema, new from 12/06/2020, small pleural effusions. patient is getting 2d-echo now no chest pain Subjective Date/time seen: 12/08/20 14:58 Interval history: less diarrhea and feeling better. Review of Systems Review of Systems: All systems reviewed & are unremarkable except as noted in HPI and below Exam Const: General: no acute distress Other: slurring words (unchanged, since had cerebellar inflammation ) HENMT: General nose exam: Normal nares present Eyes: General: appearance normal, both eyes and all related structures Neck: Neck: supple Resp: Auscultation: clear to auscultation bilaterally Cardio: Rate: tachycardic (slightly tachycardic) GI: GI Palp: Yes Soft to palpation, No Firmness to palpation present (GI) and No Tenderness to palpation present (GI) Auscultation: normal bowel sounds Skin: General skin exam: normal color Neuro: Speech: normal speech Extrem: General: normal to inspection Psych: Mental Status: mental status grossly normal Objective Data Vital Signs Vital Signs: Vital Signs - 24 hr 12/07/20 16:00 12/07/20 20:00 12/07/20 21:41 Temperature 96.4 F L Pulse Rate 106 H 100 92 Respiratory Rate 14 Blood Pressure 146/74 H Pulse Oximetry 98 12/08/20 00:00 12/08/20 04:00 12/08/20 06:00 Temperature 98.5 F Pulse Rate 101 H 84 92 Respiratory Rate 16 Blood Pressure 117/55 L Pulse Oximetry 95 12/08/20 07:47 12/08/20 08:00 12/08/20 12:00 Temperature Pulse Rate 106 H 102 H Respiratory Rate Blood Pressure Pulse Oximetry 92 12/08/20 14:00 Temperature 97 F L Pulse Rate 107 H Respiratory Rate 16 Blood Pressure 137/65 Pulse Oximetry 92 Intake/Output Intake/Output: Intake & Output 12/05/20 12/06/20 12/07/20 12/08/20 23:59 23:59 23:59 23:59 Intake Total 3660 5180 2590 Output Total 120 2550 400 Balance 3540 2630 2190 Meds/Results Medications: Active Medications Generic Name Dose Route Start Last Admin Trade Name Freq PRN Reason Stop Dose Admin Atorvastatin Calcium 20 mg 12/07/20 17:00 12/08/20 09:36 Atorvastatin 20 Mg Tablet PO 20 mg DAILY LIZ Administration Benzocaine 1 lozenge 12/07/20 16:45 12/07/20 16:58 Benzocaine/Menthol (*Bkc) 18 Ea Lozenge PO 1 lozenge PRN PRN Administration Sore Throat Piperacillin Sod/Tazobactam Sod 2.25 gm in 50 mls @ 100 mls/hr 12/06/20 18:00 12/08/20 12:09 Zosyn 2.25 Gm/D5w 50 Ml IVPB Infused Q6HR LIZ Infusion Lisinopril 20 mg 12/07/20 17:05 12/08/20 09:36 Lisinopril 20 Mg Tablet PO 20 mg DAILY LIZ Administration Magnesium Oxide 200 mg 12/07/20 21:00 12/08/20 09:36 Magnesium Oxide 200 Mg Tablet PO 200 mg Q12HR LIZ Administration Ondansetron HCl 4 mg 12/06/20 17:00 Ondansetron Inj 4 Mg/2 Ml Vial IV PUSH Q4H PRN Nausea And Vomiting Pantoprazole Sodium 40 mg 0
[2020-12-08 15:24] LABS: NT Pro B Type Natriuretic Pept 1930 PG/ML (5-100); Troponin I 0.041 ng/mL (0.000-0.034)
[2020-12-08 16:10] LABS: Thyroid Stimulating Hormone Reflex < 0.015 uIU/mL (0.465-4.68)
[2020-12-08 16:37] LABS: Free T4 Free Thyroxine Reflex 2.27 ng/dL (0.78-2.19)
[2020-12-08 20:57] LABS: Troponin I 0.034 ng/mL (0.000-0.034)
[2020-12-09] VITALS: PULSE 104
[2020-12-09 04:00] VITALS: PULSE 100
[2020-12-09 05:53] LABS: Basophils Absolute Auto 0.1 K/mm3 (0.0-0.1); Basophils Percent Auto 0.7 % (0.2-1.2); Eosinophils Absolute Auto 0.2 K/mm3 (0-0.3); Hematocrit 32.6 % (37.0-47.0); Hemoglobin 10.8 g/dL (12.0-15.0); Immature Granulocyte Absolute 0.02 K/mm3 (0.00-0.031); Immature Granulocyte Percent A 0.2 % (0-0.5); Lymphocytes Absolute Auto 2.12 K/mm3 (0.9-3.2); Lymphocytes Percent Auto 21.6 % (18.3-44.2); Mean Corpuscular HGB Conc 33.1 g/dl (32-36); Mean Corpuscular Volume 87.6 fl (80-100); Mean Platelet Volume 11.2 fl (7.4-10.4); Monocytes Absolute Auto 0.7 K/mm3 (0.1-0.6); Monocytes Percent Auto 7.5 % (2.6-8.5); Neutrophils Absolute Auto 6.7 K/mm3 (1.3-6.7); Platelet Count Result 348 k/mm3 (150-375); Red Blood Count 3.72 M/mm3 (4.2-5.4); Red Cell Distribution Width 12.9 % (11.5-14.5); White Blood Count 9.8 K/mm3 (4.5-10.0)
[2020-12-09 06:00] VITALS: BP 136/76; PULSE 87; RESP 16; TEMP 36.9; O2SAT 97
[2020-12-09 06:10] LABS: Alanine Aminotransferase 16 U/L (4-35); Albumin Level 3.4 g/dL (3.5-5.1); Alkaline Phosphatase 70 U/L (38-126); Anion Gap 4 mmol/L (8-16); Aspartate Amino Transferase 26 U/L (14-36); Bilirubin,Total 0.6 mg/dL (0.2-1.3); Blood Urea Nitrogen 3 mg/dL (7-17); Calcium 8.3 mg/dL (8.4-10.2); Carbon Dioxide 30 mmol/L (22-30); Chloride 105 mmol/L (98-107); Estimated CRCL calculation 60 ml/min; Estimated Glomerular Filt Rate > 60; Glucose 103 mg/dL (65-105); Magnesium 1.4 mg/dL (1.6-2.3); Potassium 3.3 mmol/L (3.4-5.0); Sodium 139 mmol/L (137-145)
[2020-12-09] MEDS: PANTOPRAZOLE SODIUM IV 40 MG VIAL IV PUSH (08:26)
[2020-12-09] MEDS: ATORVASTATIN 20 MG TABLET PO (08:26)
[2020-12-09] MEDS: PARoxetine 20 MG TABLET 40 MG PO (08:26)
[2020-12-09] MEDS: MAGNESIUM OXIDE 200 MG TABLET PO (08:26)
[2020-12-09] MEDS: lisinopriL 20 MG TABLET PO (08:26)
[2020-12-09] MEDS: SODIUM CHLORIDE 0.9% INJ 10 ML 100 ML (08:27)
[2020-12-09] MEDS: POTASSIUM CHLORIDE 20 MEQ TABLET 40 MEQ PO (08:35)
[2020-12-09] MEDS: MAGNESIUM SULF 2 GM/WATER 50ML 2 GM/50 ML BAG IVPB (08:35)
[2020-12-09 09:58] LABS: Total Triiodothyronine (T3) 1.34 NG/ML (0.97-1.69)
--- NOTE | 2020-12-09 11:22 | PC.NURSE ---
Pt refusing to receive anymore care. Refusing to receive an ultrasound, or consult from cad designer. Pt up in room screaming and yelling. Hospitalist called, cad designer attempted to come in room and patient is refusing to talk to anyone. Pt just wants to go home . Charge nurse in room with me trying to calm patient down. Pt wants to leave and understands the repercussions that come with that. Pt signed ama paperwork. Shoes from [employer] and a cab voucher given. Pt crying and irate while walking out the door.
--- NOTE | 2020-12-09 11:25 | PM.EVENT ---
Event Note Event Note Event Note: Called to bedside from the nurse due to patient being very upset that she is still hospitalized. When I entered the room, the patient was yelling profanity at staff. She was able to calm down and have a conversation with me. She was alert and oriented x4 and seemed to understand her diagnosis. She understands that her heart is weak and that she is at higher risk for sudden without seeing a childcare attendant or adjusting medications. Although she is not suicidal and has no intentions of hurting herself, she said she is 65 years old and said that she has lived a good life and she is okay if she dies and would rather do that than see a childcare attendant. I also talked to her about her hyperthyroidism and the workup and medications that are needed for that. I do not feel comfortable prescribing her medications like methimazole without proper follow-up. She says she does not want to take that medication and she does not care. I tried to call Dr. Paredes's office and was unable to reach their office. She understands she needs a colonoscopy in 3 weeks. She does appear to be in good consciousness and I do not suspect psychosis. She has critical thinking skills, appropriate answers, and is alert and oriented x4. She is hyperthyroid which I took into consideration but I do not suspect this is causing any type of psychosis as I do not see any psychosis clinically. The patient appears to be in her right mind and she left AMA. I did tell her that there were prescriptions at her pharmacy and that her infection could worsen if she does not pick them up. She did not want me to contact her significant other. Planned discussed with supervising physician Dr. Booker.
--- NOTE | 2020-12-09 12:37 | PC.NURSE ---
Pt alert and oriented at time of AMA. Paperwork signed. Pt did not wait for taxi and left on foot.
[2020-12-12 05:40] LABS: Thyroid Peroxidase Antibodies 868 IU/mL (<9)
[2020-12-12 13:23] LABS: Thyrotropin Receptor Antibody <1.00 IU/L (<=2.00)
--- NOTE | 2020-12-18 08:36 | PC.NURSE ---
Campylobacter and salmonella are negative. Blood cx are negative
== END 2020-12-09 11:30 | disposition left against medical advice (07) | DRG 872 ==
LOC: ANHED 11:07 → ANH3MED 14:24
PROVIDERS: Family Medicine; Internal Medicine Gastroenterology; Physician Assistant; Admitting Provider Family Medicine; Emergency Provider Emergency Medicine; PCP Internal Medicine; Visit Provider Internal Medicine
DX: A41.9 Sepsis, unspecified organism (principal); N17.9 Acute kidney failure, unspecified; K52.9 Noninfective gastroenteritis and colitis, unspecified; E86.0 Dehydration; E87.6 Hypokalemia; E83.42 Hypomagnesemia; E05.90 Thyrotoxicosis, unspecified without thyrotoxic crisis or storm; E78.5 Hyperlipidemia, unspecified; I10 Essential (primary) hypertension; K21.9 Gastro-esophageal reflux disease without esophagitis; R47.89 Other speech disturbances; Z28.21 Immunization not carried out because of patient refusal; Z79.899 Other long term (current) drug therapy
CPT/HCPCS: 36415; 51701; 71250; 74176; 80048; 80053; 80076; 81001; 83519; 83605; 83690; 83735; 83880; 84439; 84443; 84480; 84484; 85025; 85652; 86140; 86376; 87015; 87040; 87045; 87046; 87086; 87269; 87272; 87324; 87427; 89055; 93005; 93306; 96361; 96365; 96367; 97161; 97165; 99285; A9270; C9113; J2405; J2543; J3475; J3480; J7030; J7120